=== PATIENT | male | born 1950 | race Caucasian/White ===

== ENCOUNTER 2017-09-12 11:17 | Day surgery (SDC) | payer MEDICARE ==
[~2017-09-12] VITALS: Ht 182.9 cm; Wt 136.1 kg
[~2017-09-12 11:17] MED LIST: AMLO5 PO; ATEN100 PO; CHLO25B PO; CYCL10 PO; FERROUS SULFATE PO; FLUOROURACIL30 GM TOP; HYDCHL25 PO; LOSA50 PO; OMEPRAZOLE MAGN20 MG PO; Percocet 5-3251 EACH PO; Prednisone20 MG PO; TRIA15CR3 TOP; Zestril40 MG PO
[2017-09-13 04:42] LABS: BASOPHILS ABSOLUTE AUTO 0.02 K/mm3 (0.00-0.23); BASOPHILS PERCENT AUTO 0 % (0-2); EOSINOPHILS ABSOLUTE AUTO 0.01 K/mm3 (0.00-0.68); EOSINOPHILS PERCENT AUTO 0 % (0-6); Hematocrit 35.3 % (37.0-53.0); Hemoglobin 12.1 g/dL (13.5-17.5); IMMATURE GRAN ABSOLUTE AUTO 0.04 K/mm3 (0.00-0.10); IMMATURE GRAN PERCENT AUTO 0 % (0-1); LYMPHOCYTES ABSOLUTE AUTO 0.64 K/mm3 (0.84-5.20); LYMPHOCYTES PERCENT AUTO 6 % (21-46); MONOCYTES ABSOLUTE AUTO 0.55 K/mm3 (0.16-1.47); MONOCYTES PERCENT AUTO 5 % (4-13); Mean Corpuscular HGB 31.1 pg (26.0-34.0); Mean Corpuscular HGB Conc 34.3 g/dL (31.5-36.5); Mean Corpuscular Volume 91 fL (80-100); Mean Platelet Volume 8.1 fL (9.1-12.4); NEUTROPHILS ABSOLUTE AUTO 9.22 K/mm3 (1.96-9.15); NEUTROPHILS PERCENT AUTO 88 % (41-73); Platelet Count 261 K/mm3 (150-400); RDW Coefficient Variation 12.3 % (11.7-14.2); RDW Standard Deviation 40.4 fL (35.1-46.3); Red Blood Cell Count 3.89 M/mm3 (4.30-5.90); White Blood Cell Count 10.48 K/mm3 (4.00-11.30)
[2017-09-13 05:03] LABS: Bun/Creatinine Ratio 17.4 (12.0-20.0); Calcium, Blood 8.7 mg/dL (8.5-10.1); Creatinine, Blood 1.44 mg/dL (0.60-1.20); Magnesium, Blood 1.9 mg/dL (1.6-2.4); Potassium, Blood 4.5 mmol/L (3.5-5.5)
[2017-09-13] MEDS ORDERED: ENOX40I SC (10:45)
[2017-09-13] MEDS ORDERED: PROM25 PO (10:46)
[2017-09-13] MEDS ORDERED: Percocet 5-3251 EACH PO (10:47)
== END 2017-09-13 15:02 | disposition home or self-care (01) ==
LOC: ORSCMMR 11:17 → PRE IP 11:17 → SURS 11:17 → EDSTATUS 15:00 → PRE IP 15:00 → SURS 17:52 → ORSCMMR 09-13 15:02
PROVIDERS: Orthopaedic Surgery
PROC: 0SRC0J9 Replacement of Right Knee Joint with Synthetic Substitute, Cemented, Open Approach (ICD-10-PCS; principal; 2017-09-12 15:00)
DX: M17.11 Unilateral primary osteoarthritis, right knee (principal); I10 Essential (primary) hypertension; G47.33 Obstructive sleep apnea (adult) (pediatric); Z87.891 Personal history of nicotine dependence; E66.01 Morbid (severe) obesity due to excess calories; Z68.41 Body mass index [BMI] 40.0-44.9, adult; Z79.899 Other long term (current) drug therapy
CPT/HCPCS: 36415; 73560-RT; 80048; 83735; 85025; 86850; 86900; 86901; 88300; 97110; 97116; 97162; 97530; C1713; C1776; G8978; G8979; J0171; J0330; J0690; J0735; J1100; J1650; J1885; J2250; J2405; J2795; J3010; J3370; J7120; Q0163

== ENCOUNTER 2017-09-27 15:27 | Inpatient (IN) | payer MEDICARE ==
[~2017-09-27] VITALS: Ht 185.4 cm; Wt 135.0 kg
[~2017-09-27 15:27] MED LIST changes: +ENOX40I SC; +PROM25 PO
[2017-09-27] MEDS ORDERED: Prilosec Otc20 MG PO ×2 (16:22)
[2017-09-27 16:58] LABS: Bun/Creatinine Ratio 17.7 (12.0-20.0); Calcium, Blood 9.1 mg/dL (8.5-10.1); Creatinine, Blood 1.58 mg/dL (0.60-1.20); Potassium, Blood 4.1 mmol/L (3.5-5.5)
[2017-09-27 20:20] LABS: BODY FLUID RBC 0.113 (0-0); RBC Count, Synovial Fluid 113000 /mm3 (0-0); WBC Count, Synovial Fluid 4862 /mm3 (0-180)
[2017-09-27 20:28] LABS: Lymphs, Synovial Fluid 8 % (0-15); Monocytes/Macrophages, Synovia 4 % (0-65); Neutrophils, Synovial Fluid 88 % (0-24)
[2017-09-27 20:29] LABS: Appearance, Synovial Fluid Turbid (Clear); Color, Synovial Fluid Red (None-P Yel)
[2017-09-27 20:50] LABS: BODY FLUID RBC 0.564 (0-0); RBC Count, Synovial Fluid 564000 /mm3 (0-0)
[2017-09-27 21:02] LABS: Lymphs, Synovial Fluid 1 % (0-15); Neutrophils, Synovial Fluid 99 % (0-24); WBC Count, Synovial Fluid 179840 /mm3 (0-180)
[2017-09-27 21:07] LABS: Appearance, Synovial Fluid Bloody (Clear); Color, Synovial Fluid Red (None-P Yel)
[2017-09-28 03:51] LABS: BASOPHILS ABSOLUTE AUTO 0.02 K/mm3 (0.00-0.23); BASOPHILS PERCENT AUTO 0 % (0-2); EOSINOPHILS PERCENT AUTO 0 % (0-6); Hematocrit 27.3 % (37.0-53.0); Hemoglobin 9.3 g/dL (13.5-17.5); IMMATURE GRAN ABSOLUTE AUTO 0.08 K/mm3 (0.00-0.10); IMMATURE GRAN PERCENT AUTO 1 % (0-1); LYMPHOCYTES ABSOLUTE AUTO 0.31 K/mm3 (0.84-5.20); LYMPHOCYTES PERCENT AUTO 3 % (21-46); MONOCYTES PERCENT AUTO 4 % (4-13); Mean Corpuscular HGB 31.3 pg (26.0-34.0); Mean Corpuscular HGB Conc 34.1 g/dL (31.5-36.5); Mean Corpuscular Volume 92 fL (80-100); Mean Platelet Volume 8.3 fL (9.1-12.4); NEUTROPHILS ABSOLUTE AUTO 10.29 K/mm3 (1.96-9.15); NEUTROPHILS PERCENT AUTO 93 % (41-73); Platelet Count 348 K/mm3 (150-400); RDW Standard Deviation 43.4 fL (35.1-46.3); Red Blood Cell Count 2.97 M/mm3 (4.30-5.90)
[2017-09-28 04:16] LABS: Bun/Creatinine Ratio 17.2 (12.0-20.0); Calcium, Blood 8.5 mg/dL (8.5-10.1); Creatinine, Blood 1.51 mg/dL (0.60-1.20); Magnesium, Blood 1.7 mg/dL (1.6-2.4); Potassium, Blood 4.3 mmol/L (3.5-5.5)
[2017-09-28] MEDS ORDERED: METO100ER PO ×2 (13:45)
[2017-09-29 05:37] LABS: BASOPHILS ABSOLUTE AUTO 0.05 K/mm3 (0.00-0.23); BASOPHILS PERCENT AUTO 1 % (0-2); EOSINOPHILS ABSOLUTE AUTO 0.38 K/mm3 (0.00-0.68); EOSINOPHILS PERCENT AUTO 5 % (0-6); Hematocrit 29.2 % (37.0-53.0); IMMATURE GRAN ABSOLUTE AUTO 0.05 K/mm3 (0.00-0.10); IMMATURE GRAN PERCENT AUTO 1 % (0-1); LYMPHOCYTES ABSOLUTE AUTO 1.07 K/mm3 (0.84-5.20); LYMPHOCYTES PERCENT AUTO 13 % (21-46); MONOCYTES ABSOLUTE AUTO 0.51 K/mm3 (0.16-1.47); MONOCYTES PERCENT AUTO 6 % (4-13); Mean Corpuscular HGB 31.2 pg (26.0-34.0); Mean Corpuscular HGB Conc 34.2 g/dL (31.5-36.5); Mean Corpuscular Volume 91 fL (80-100); Mean Platelet Volume 8.2 fL (9.1-12.4); NEUTROPHILS ABSOLUTE AUTO 6.33 K/mm3 (1.96-9.15); NEUTROPHILS PERCENT AUTO 75 % (41-73); Platelet Count 389 K/mm3 (150-400); RDW Coefficient Variation 12.8 % (11.7-14.2); RDW Standard Deviation 42.2 fL (35.1-46.3); Red Blood Cell Count 3.21 M/mm3 (4.30-5.90); White Blood Cell Count 8.39 K/mm3 (4.00-11.30)
[2017-09-29 05:58] LABS: Creatinine, Blood 1.37 mg/dL (0.60-1.20); Potassium, Blood 4.1 mmol/L (3.5-5.5)
[2017-09-29 11:52] LABS: BODY FLUID RBC 0.397 (0-0); RBC Count, Synovial Fluid 397000 /mm3 (0-0)
[2017-09-29 11:58] LABS: WBC Count, Synovial Fluid 25280 /mm3 (0-180)
[2017-09-29 12:01] LABS: Appearance, Synovial Fluid Bloody (Clear); Color, Synovial Fluid Red (None-P Yel)
[2017-09-29 12:35] LABS: Lymphs, Synovial Fluid 2 % (0-15); Monocytes/Macrophages, Synovia 7 % (0-65); Neutrophils, Synovial Fluid 91 % (0-24)
[2017-10-01 06:21] LABS: Hematocrit 29.1 % (37.0-53.0); Hemoglobin 9.8 g/dL (13.5-17.5); Mean Corpuscular HGB 31.3 pg (26.0-34.0); Mean Corpuscular HGB Conc 33.7 g/dL (31.5-36.5); Mean Corpuscular Volume 93 fL (80-100); Mean Platelet Volume 7.9 fL (9.1-12.4); Platelet Count 404 K/mm3 (150-400); RDW Coefficient Variation 13.1 % (11.7-14.2); RDW Standard Deviation 44.5 fL (35.1-46.3); Red Blood Cell Count 3.13 M/mm3 (4.30-5.90); White Blood Cell Count 7.25 K/mm3 (4.00-11.30)
[2017-10-01 06:40] LABS: Albumin, Blood 2.9 g/dL (3.4-5.0); Albumin/Globulin Ratio 0.7 (0.8-1.8); Bilirubin, Total 0.3 mg/dL (0.1-1.0); Bun/Creatinine Ratio 20.2 (12.0-20.0); Calcium, Blood 8.8 mg/dL (8.5-10.1); Creatinine, Blood 1.29 mg/dL (0.60-1.20); Globulin, Blood 3.9 g/dL (2.2-4.0); Potassium, Blood 4.1 mmol/L (3.5-5.5); Total Protein, Blood 6.8 g/dL (6.4-8.2)
[2017-10-01 16:59] LABS: BODY FLUID RBC 1.012 (0-0); RBC Count, Synovial Fluid 1012000 /mm3 (0-0); WBC Count, Synovial Fluid 3431 /mm3 (0-180)
[2017-10-01 17:39] LABS: Appearance, Synovial Fluid Bloody (Clear); Color, Synovial Fluid Red (None-P Yel)
[2017-10-01 17:46] LABS: Eos, Synovial Fluid 14 % (0-2); Lymphs, Synovial Fluid 11 % (0-15); Neutrophils, Synovial Fluid 75 % (0-24)
[2017-10-02 05:08] LABS: BASOPHILS ABSOLUTE AUTO 0.02 K/mm3 (0.00-0.23); BASOPHILS PERCENT AUTO 0 % (0-2); EOSINOPHILS ABSOLUTE AUTO 0.03 K/mm3 (0.00-0.68); EOSINOPHILS PERCENT AUTO 0 % (0-6); Hemoglobin 9.9 g/dL (13.5-17.5); IMMATURE GRAN ABSOLUTE AUTO 0.09 K/mm3 (0.00-0.10); IMMATURE GRAN PERCENT AUTO 1 % (0-1); LYMPHOCYTES ABSOLUTE AUTO 0.61 K/mm3 (0.84-5.20); LYMPHOCYTES PERCENT AUTO 7 % (21-46); MONOCYTES ABSOLUTE AUTO 0.47 K/mm3 (0.16-1.47); MONOCYTES PERCENT AUTO 6 % (4-13); Mean Corpuscular HGB 30.1 pg (26.0-34.0); Mean Corpuscular Volume 91 fL (80-100); Mean Platelet Volume 8.1 fL (9.1-12.4); NEUTROPHILS ABSOLUTE AUTO 7.13 K/mm3 (1.96-9.15); NEUTROPHILS PERCENT AUTO 85 % (41-73); Platelet Count 414 K/mm3 (150-400); RDW Coefficient Variation 12.7 % (11.7-14.2); RDW Standard Deviation 42.4 fL (35.1-46.3); Red Blood Cell Count 3.29 M/mm3 (4.30-5.90); White Blood Cell Count 8.35 K/mm3 (4.00-11.30)
[2017-10-02 05:32] LABS: Anion Gap 7 mmol/L (6-16); Blood Urea Nitrogen 22 mg/dL (8-24); Bun/Creatinine Ratio 19.5 (12.0-20.0); CO2, Blood 27 mmol/L (21-32); Calcium, Blood 8.9 mg/dL (8.5-10.1); Chloride, Blood 96 mmol/L (98-108); Creatinine, Blood 1.13 mg/dL (0.60-1.20); Glomerular Filtration Rate >60 (60-); Glucose, Blood 126 mg/dL (70-99); Magnesium, Blood 2.3 mg/dL (1.6-2.4); Potassium, Blood 4.1 mmol/L (3.5-5.5); Sodium, Blood 130 mmol/L (136-145)
[2017-10-02] MEDS ORDERED: LO-DOSE ASPIRIN81 MG ×2 (14:10)
[2017-10-02] MEDS ORDERED: THERA M PLUS T1 EACH PO ×2 (14:11)
[2017-10-02] MEDS ORDERED: CLON.1 PO ×2 (14:11)
[2017-10-02] MEDS ORDERED: Ecotrin325 MG PO ×2 (14:43)
[2017-10-06] MEDS ORDERED: Rocephin 1g1 G/50 ML IV (18:19)
== END 2017-10-02 15:15 | disposition home or self-care (01) | DRG 467 ==
LOC: ORSCMMR 15:27 → SURS 19:59 → ORSCMMR 20:14 → SURS 20:14
PROVIDERS: Internal Medicine; Orthopaedic Surgery
PROC: 0SBC0ZZ Excision of Right Knee Joint, Open Approach (ICD-10-PCS; 2017-09-27)
PROC: 0S9C30Z Drainage of Right Knee Joint with Drainage Device, Percutaneous Approach (ICD-10-PCS; 2017-09-27)
PROC: 02HV33Z Insertion of Infusion Device into Superior Vena Cava, Percutaneous Approach (ICD-10-PCS; 2017-09-27)
PROC: 0SPV0JZ Removal of Synthetic Substitute from Right Knee Joint, Tibial Surface, Open Approach (ICD-10-PCS; principal; 2017-09-27 17:00)
PROC: 0SRV0JZ Replacement of Right Knee Joint, Tibial Surface with Synthetic Substitute, Open Approach (ICD-10-PCS; 2017-09-27 17:00)
DX: T84.53XA Infection and inflammatory reaction due to internal right knee prosthesis, initial encounter (principal); M00.861 Arthritis due to other bacteria, right knee; B96.20 Unspecified Escherichia coli [E. coli] as the cause of diseases classified elsewhere; I10 Essential (primary) hypertension; K21.9 Gastro-esophageal reflux disease without esophagitis; G47.30 Sleep apnea, unspecified; J44.9 Chronic obstructive pulmonary disease, unspecified; F10.21 Alcohol dependence, in remission; Z68.39 Body mass index [BMI] 39.0-39.9, adult
CPT/HCPCS: 36415; 73560-RT; 80048; 80053; 82947; 83735; 85025; 85027; 85651; 86140; 86850; 86900; 86901; 87070; 87071; 87075; 87077; 87186; 87205; 89051; 93971; 97110; 97116; 97161; 97165; C1713; C1776; G8978; G8979; G8987; G8988; G8989; J0360; J0690; J0696; J1100; J1170; J1885; J1956; J2250; J2370; J2405; J2710; J3010; J3370; J7030; J7050; J7120; Q0163

== ENCOUNTER 2017-10-03 00:24 | Day surgery (SDC) | payer MEDICARE ==
[~2017-10-03 00:24] MED LIST changes: +CLON.1 PO; +Ecotrin325 MG PO; +LO-DOSE ASPIRIN81 MG; +METO100ER PO; +Prilosec Otc20 MG PO; +THERA M PLUS T1 EACH PO
[2017-10-04] MEDS ORDERED: DOCU100 PO (14:06)
== END 2017-10-03 14:35 | disposition home or self-care (01) ==
LOC: ATC 00:24
DX: T84.53XA Infection and inflammatory reaction due to internal right knee prosthesis, initial encounter (principal); I10 Essential (primary) hypertension; K21.9 Gastro-esophageal reflux disease without esophagitis; G47.30 Sleep apnea, unspecified; J44.9 Chronic obstructive pulmonary disease, unspecified
CPT/HCPCS: 96374; 99211; J0696

== ENCOUNTER 2017-10-04 00:25 | Day surgery (SDC) | payer MEDICARE ==
[2017-10-04] MEDS ORDERED: DOCU100 PO (14:06)
[2017-10-06] MEDS ORDERED: Rocephin 1g1 G/50 ML IV (18:19)
== END 2017-10-04 14:40 | disposition home or self-care (01) ==
LOC: ATC 00:25
DX: T84.53XA Infection and inflammatory reaction due to internal right knee prosthesis, initial encounter (principal); I10 Essential (primary) hypertension; K21.9 Gastro-esophageal reflux disease without esophagitis; G47.30 Sleep apnea, unspecified; J44.9 Chronic obstructive pulmonary disease, unspecified
CPT/HCPCS: 96374; 99211; J0696

== ENCOUNTER 2017-10-07 00:25 | Day surgery (SDC) | payer MEDICARE ==
[~2017-10-07 00:25] MED LIST changes: +DOCU100 PO; +Rocephin 1g1 G/50 ML IV
== END 2017-10-07 14:00 | disposition home or self-care (01) ==
LOC: ATC 00:25
DX: T84.53XA Infection and inflammatory reaction due to internal right knee prosthesis, initial encounter (principal); I10 Essential (primary) hypertension; G47.30 Sleep apnea, unspecified; J44.9 Chronic obstructive pulmonary disease, unspecified; K21.9 Gastro-esophageal reflux disease without esophagitis
CPT/HCPCS: 96374; 99211; J0696

== ENCOUNTER 2017-10-11 00:28 | Day surgery (SDC) | payer MEDICARE | END 2017-10-11 15:00 | disposition home or self-care (01) | LOC: ATC 00:28 | DX: T84.53XA Infection and inflammatory reaction due to internal right knee prosthesis, initial encounter (principal); I10 Essential (primary) hypertension | CPT/HCPCS: 96374; 99211; J0696 ==

== ENCOUNTER 2017-10-12 00:18 | Day surgery (SDC) | payer MEDICARE | END 2017-10-12 14:25 | disposition home or self-care (01) | LOC: ATC 00:18 | DX: T84.53XA Infection and inflammatory reaction due to internal right knee prosthesis, initial encounter (principal); I10 Essential (primary) hypertension; K21.9 Gastro-esophageal reflux disease without esophagitis; G47.30 Sleep apnea, unspecified; J44.9 Chronic obstructive pulmonary disease, unspecified | CPT/HCPCS: 96374; 99211; J0696 ==

== ENCOUNTER 2017-10-16 00:48 | Day surgery (SDC) | payer MEDICARE | END 2017-10-16 14:12 | disposition home or self-care (01) | LOC: ATC 00:48 | DX: T84.53XA Infection and inflammatory reaction due to internal right knee prosthesis, initial encounter (principal); I10 Essential (primary) hypertension; G47.30 Sleep apnea, unspecified; K21.9 Gastro-esophageal reflux disease without esophagitis; J44.9 Chronic obstructive pulmonary disease, unspecified | CPT/HCPCS: 96374; 99211 ==

== ENCOUNTER 2017-10-17 00:46 | Day surgery (SDC) | payer MEDICARE | END 2017-10-17 14:26 | disposition home or self-care (01) | LOC: ATC 00:46 | DX: T84.53XA Infection and inflammatory reaction due to internal right knee prosthesis, initial encounter (principal); I10 Essential (primary) hypertension; K21.9 Gastro-esophageal reflux disease without esophagitis; G47.30 Sleep apnea, unspecified | CPT/HCPCS: 96374; J0696 ==

== ENCOUNTER 2017-10-18 00:27 | Day surgery (SDC) | payer MEDICARE | END 2017-10-18 14:12 | disposition home or self-care (01) | LOC: ATC 00:27 | DX: T84.53XA Infection and inflammatory reaction due to internal right knee prosthesis, initial encounter (principal); I10 Essential (primary) hypertension; J44.9 Chronic obstructive pulmonary disease, unspecified; G47.30 Sleep apnea, unspecified | CPT/HCPCS: 96374; J0696 ==

== ENCOUNTER 2017-10-19 02:09 | Day surgery (SDC) | payer MEDICARE | END 2017-10-19 13:52 | disposition home or self-care (01) | LOC: ATC 02:09 | DX: T84.53XA Infection and inflammatory reaction due to internal right knee prosthesis, initial encounter (principal); I10 Essential (primary) hypertension; K21.9 Gastro-esophageal reflux disease without esophagitis; G47.30 Sleep apnea, unspecified | CPT/HCPCS: 96374; J0696 ==

== ENCOUNTER 2017-10-21 00:30 | Day surgery (SDC) | payer MEDICARE | END 2017-10-21 13:36 | disposition home or self-care (01) | LOC: ATC 00:30 | DX: T84.53XA Infection and inflammatory reaction due to internal right knee prosthesis, initial encounter (principal); I10 Essential (primary) hypertension; K21.9 Gastro-esophageal reflux disease without esophagitis; J44.9 Chronic obstructive pulmonary disease, unspecified | CPT/HCPCS: 96365; J0696 ==

== ENCOUNTER 2017-10-22 00:14 | Day surgery (SDC) | payer MEDICARE | END 2017-10-22 13:43 | disposition home or self-care (01) | LOC: ATC 00:14 | DX: T84.53XA Infection and inflammatory reaction due to internal right knee prosthesis, initial encounter (principal); I10 Essential (primary) hypertension; K21.9 Gastro-esophageal reflux disease without esophagitis; G47.30 Sleep apnea, unspecified; J44.9 Chronic obstructive pulmonary disease, unspecified | CPT/HCPCS: 96374; 99211; J0696 ==

== ENCOUNTER 2017-10-23 00:59 | Day surgery (SDC) | payer MEDICARE | END 2017-10-23 15:29 | disposition home or self-care (01) | LOC: ATC 00:59 | DX: T84.53XA Infection and inflammatory reaction due to internal right knee prosthesis, initial encounter (principal); I10 Essential (primary) hypertension; K21.9 Gastro-esophageal reflux disease without esophagitis; G47.30 Sleep apnea, unspecified | CPT/HCPCS: 96374; J0696 ==

== ENCOUNTER 2017-10-24 00:04 | Day surgery (SDC) | payer MEDICARE | END 2017-10-24 15:14 | disposition home or self-care (01) | LOC: ATC 00:04 | DX: T84.53XA Infection and inflammatory reaction due to internal right knee prosthesis, initial encounter (principal); I10 Essential (primary) hypertension; K21.9 Gastro-esophageal reflux disease without esophagitis; J44.9 Chronic obstructive pulmonary disease, unspecified; G47.30 Sleep apnea, unspecified; Z85.038 Personal history of other malignant neoplasm of large intestine | CPT/HCPCS: 96374; J0696 ==

== ENCOUNTER 2017-10-25 00:17 | Day surgery (SDC) | payer MEDICARE | END 2017-10-25 15:41 | disposition home or self-care (01) | LOC: ATC 00:17 | DX: T84.53XA Infection and inflammatory reaction due to internal right knee prosthesis, initial encounter (principal); I10 Essential (primary) hypertension; K21.9 Gastro-esophageal reflux disease without esophagitis | CPT/HCPCS: 96374; J0696 ==

== ENCOUNTER 2017-10-26 12:31 | Day surgery (SDC) | payer MEDICARE ==
[~2017-10-26] VITALS: Ht 185.4 cm; Wt 131.5 kg
== END 2017-10-26 14:35 | disposition home or self-care (01) ==
LOC: ORSCMMR 12:31 → ATC 14:00 → ORSCMMR 14:35
PROVIDERS: Orthopaedic Surgery
PROC: 2W1QX6Z Compression of Right Lower Leg using Pressure Dressing (ICD-10-PCS; principal; 2017-10-26 14:30)
DX: T84.53XA Infection and inflammatory reaction due to internal right knee prosthesis, initial encounter (principal); K21.9 Gastro-esophageal reflux disease without esophagitis; I10 Essential (primary) hypertension; J44.9 Chronic obstructive pulmonary disease, unspecified; Z87.891 Personal history of nicotine dependence; Z79.82 Long term (current) use of aspirin; Z79.899 Other long term (current) drug therapy
CPT/HCPCS: J0690

== ENCOUNTER 2017-10-29 00:48 | Day surgery (SDC) | payer MEDICARE | END 2017-10-29 13:50 | disposition home or self-care (01) | LOC: ATC 00:48 | DX: T84.53XA Infection and inflammatory reaction due to internal right knee prosthesis, initial encounter (principal); I10 Essential (primary) hypertension; K21.9 Gastro-esophageal reflux disease without esophagitis; G47.30 Sleep apnea, unspecified; J44.9 Chronic obstructive pulmonary disease, unspecified | CPT/HCPCS: 96374; J0696 ==

== ENCOUNTER 2017-10-31 00:39 | Day surgery (SDC) | payer MEDICARE | END 2017-10-31 13:58 | disposition home or self-care (01) | LOC: ATC 00:39 | DX: T84.53XA Infection and inflammatory reaction due to internal right knee prosthesis, initial encounter (principal); I10 Essential (primary) hypertension; G47.30 Sleep apnea, unspecified; J44.9 Chronic obstructive pulmonary disease, unspecified | CPT/HCPCS: 96374; J0696 ==

== ENCOUNTER 2017-11-01 00:39 | Day surgery (SDC) | payer MEDICARE ==
[2017-11-01 14:37] LABS: BASOPHILS ABSOLUTE AUTO 0.05 K/mm3 (0.00-0.23); BASOPHILS PERCENT AUTO 1 % (0-2); EOSINOPHILS ABSOLUTE AUTO 0.27 K/mm3 (0.00-0.68); EOSINOPHILS PERCENT AUTO 6 % (0-6); Hematocrit 31.7 % (37.0-53.0); Hemoglobin 10.8 g/dL (13.5-17.5); IMMATURE GRAN ABSOLUTE AUTO 0.01 K/mm3 (0.00-0.10); IMMATURE GRAN PERCENT AUTO 0 % (0-1); LYMPHOCYTES ABSOLUTE AUTO 0.74 K/mm3 (0.84-5.20); LYMPHOCYTES PERCENT AUTO 17 % (21-46); MONOCYTES ABSOLUTE AUTO 0.64 K/mm3 (0.16-1.47); MONOCYTES PERCENT AUTO 15 % (4-13); Mean Corpuscular HGB 29.2 pg (26.0-34.0); Mean Corpuscular HGB Conc 34.1 g/dL (31.5-36.5); Mean Corpuscular Volume 86 fL (80-100); Mean Platelet Volume 8.2 fL (9.1-12.4); NEUTROPHILS ABSOLUTE AUTO 2.55 K/mm3 (1.96-9.15); NEUTROPHILS PERCENT AUTO 60 % (41-73); Platelet Count 283 K/mm3 (150-400); RDW Coefficient Variation 13.1 % (11.7-14.2); RDW Standard Deviation 40.8 fL (35.1-46.3); White Blood Cell Count 4.26 K/mm3 (4.00-11.30)
== END 2017-11-01 14:25 | disposition home or self-care (01) ==
LOC: ATC 00:39
PROVIDERS: Orthopaedic Surgery
DX: T84.53XA Infection and inflammatory reaction due to internal right knee prosthesis, initial encounter (principal); I10 Essential (primary) hypertension; K21.9 Gastro-esophageal reflux disease without esophagitis; G47.30 Sleep apnea, unspecified; J44.9 Chronic obstructive pulmonary disease, unspecified
CPT/HCPCS: 85025; 85651; 86140; 96374; J0696

== ENCOUNTER 2017-11-02 00:17 | Day surgery (SDC) | payer MEDICARE | END 2017-11-02 10:30 | disposition home or self-care (01) | LOC: ATC 00:17 | DX: T84.53XA Infection and inflammatory reaction due to internal right knee prosthesis, initial encounter (principal); I10 Essential (primary) hypertension; K21.9 Gastro-esophageal reflux disease without esophagitis; G47.30 Sleep apnea, unspecified; J44.9 Chronic obstructive pulmonary disease, unspecified | CPT/HCPCS: 96374; J0696 ==

== ENCOUNTER 2017-11-03 00:31 | Day surgery (SDC) | payer MEDICARE | END 2017-11-03 13:58 | disposition home or self-care (01) | LOC: ATC 00:31 | DX: T84.53XA Infection and inflammatory reaction due to internal right knee prosthesis, initial encounter (principal) | CPT/HCPCS: 96374; J0696 ==

== ENCOUNTER 2017-11-04 00:04 | Day surgery (SDC) | payer MEDICARE | END 2017-11-04 13:38 | disposition home or self-care (01) | LOC: ATC 00:04 | DX: T84.53XA Infection and inflammatory reaction due to internal right knee prosthesis, initial encounter (principal); I10 Essential (primary) hypertension; K21.9 Gastro-esophageal reflux disease without esophagitis; G47.30 Sleep apnea, unspecified | CPT/HCPCS: 96374; J0696 ==

== ENCOUNTER 2017-11-05 00:07 | Day surgery (SDC) | payer MEDICARE | END 2017-11-05 13:56 | disposition home or self-care (01) | LOC: ATC 00:07 | DX: T84.53XA Infection and inflammatory reaction due to internal right knee prosthesis, initial encounter (principal); I10 Essential (primary) hypertension; K21.9 Gastro-esophageal reflux disease without esophagitis; G47.30 Sleep apnea, unspecified; J44.9 Chronic obstructive pulmonary disease, unspecified | CPT/HCPCS: 96374; J0696 ==

== ENCOUNTER 2017-11-06 00:54 | Day surgery (SDC) | payer MEDICARE | END 2017-11-06 14:22 | disposition home or self-care (01) | LOC: ATC 00:54 | DX: T84.53XA Infection and inflammatory reaction due to internal right knee prosthesis, initial encounter (principal); I10 Essential (primary) hypertension; K21.9 Gastro-esophageal reflux disease without esophagitis; J44.9 Chronic obstructive pulmonary disease, unspecified | CPT/HCPCS: 96374; J0696 ==

== ENCOUNTER 2017-11-07 | Day surgery (SDC) | END 2017-11-07 13:56 | disposition home or self-care (01) ==

== ENCOUNTER 2017-11-09 00:12 | Day surgery (SDC) | payer MEDICARE ==
[2017-11-09 14:18] LABS: BASOPHILS ABSOLUTE AUTO 0.04 K/mm3 (0.00-0.23); BASOPHILS PERCENT AUTO 1 % (0-2); EOSINOPHILS ABSOLUTE AUTO 0.03 K/mm3 (0.00-0.68); EOSINOPHILS PERCENT AUTO 1 % (0-6); Hematocrit 31.2 % (37.0-53.0); Hemoglobin 10.4 g/dL (13.5-17.5); IMMATURE GRAN ABSOLUTE AUTO 0.01 K/mm3 (0.00-0.10); IMMATURE GRAN PERCENT AUTO 0 % (0-1); LYMPHOCYTES ABSOLUTE AUTO 0.71 K/mm3 (0.84-5.20); LYMPHOCYTES PERCENT AUTO 19 % (21-46); MONOCYTES ABSOLUTE AUTO 0.62 K/mm3 (0.16-1.47); MONOCYTES PERCENT AUTO 16 % (4-13); Mean Corpuscular HGB 28.3 pg (26.0-34.0); Mean Corpuscular HGB Conc 33.3 g/dL (31.5-36.5); Mean Corpuscular Volume 85 fL (80-100); Mean Platelet Volume 8.3 fL (9.1-12.4); NEUTROPHILS ABSOLUTE AUTO 2.39 K/mm3 (1.96-9.15); NEUTROPHILS PERCENT AUTO 63 % (41-73); Platelet Count 348 K/mm3 (150-400); RDW Coefficient Variation 13.3 % (11.7-14.2); RDW Standard Deviation 41.3 fL (35.1-46.3); Red Blood Cell Count 3.67 M/mm3 (4.30-5.90)
== END 2017-11-09 14:02 | disposition home or self-care (01) ==
LOC: ATC 00:12
PROVIDERS: Orthopaedic Surgery
DX: T84.53XA Infection and inflammatory reaction due to internal right knee prosthesis, initial encounter (principal); I10 Essential (primary) hypertension; J44.9 Chronic obstructive pulmonary disease, unspecified; G47.30 Sleep apnea, unspecified
CPT/HCPCS: 85025; 85651; 86140; 96374; J0696

== ENCOUNTER 2017-11-10 13:52 | Day surgery (SDC) | payer MEDICARE | END 2017-11-10 14:15 | disposition home or self-care (01) | LOC: ATC 13:52 | DX: T84.53XA Infection and inflammatory reaction due to internal right knee prosthesis, initial encounter (principal); I10 Essential (primary) hypertension; K21.9 Gastro-esophageal reflux disease without esophagitis; J44.9 Chronic obstructive pulmonary disease, unspecified; G47.30 Sleep apnea, unspecified | CPT/HCPCS: 96374; J0696 ==

== ENCOUNTER 2017-11-13 00:30 | Day surgery (SDC) | payer MEDICARE ==
[2017-11-13 13:11] LABS: Albumin, Blood 3.9 g/dL (3.4-5.0); Albumin/Globulin Ratio 0.9 (0.8-1.8); Bilirubin, Total 0.2 mg/dL (0.1-1.0); Bun/Creatinine Ratio 13.7 (12.0-20.0); Creatinine, Blood 1.31 mg/dL (0.60-1.20); Globulin, Blood 4.2 g/dL (2.2-4.0); Potassium, Blood 4.3 mmol/L (3.5-5.5); Total Protein, Blood 8.1 g/dL (6.4-8.2)
== END 2017-11-13 12:32 | disposition home or self-care (01) ==
LOC: ATC 00:30
PROVIDERS: Internal Medicine Infectious Disease
DX: T84.53XA Infection and inflammatory reaction due to internal right knee prosthesis, initial encounter (principal); I10 Essential (primary) hypertension; K21.9 Gastro-esophageal reflux disease without esophagitis; G47.30 Sleep apnea, unspecified; J44.9 Chronic obstructive pulmonary disease, unspecified
CPT/HCPCS: 80053; 96374; J0696

== ENCOUNTER 2017-11-14 00:23 | Day surgery (SDC) | payer MEDICARE | END 2017-11-14 14:17 | disposition home or self-care (01) | LOC: ATC 00:23 | DX: T84.53XA Infection and inflammatory reaction due to internal right knee prosthesis, initial encounter (principal); I10 Essential (primary) hypertension; K21.9 Gastro-esophageal reflux disease without esophagitis; J44.9 Chronic obstructive pulmonary disease, unspecified | CPT/HCPCS: 96374; J0696 ==

== ENCOUNTER 2017-11-15 00:18 | Day surgery (SDC) | payer MEDICARE | END 2017-11-15 14:20 | disposition home or self-care (01) | LOC: ATC 00:18 | DX: T84.53XA Infection and inflammatory reaction due to internal right knee prosthesis, initial encounter (principal); I10 Essential (primary) hypertension; G47.33 Obstructive sleep apnea (adult) (pediatric); J44.9 Chronic obstructive pulmonary disease, unspecified | CPT/HCPCS: 96374; 99211; J0696 ==

== ENCOUNTER 2017-11-16 00:14 | Day surgery (SDC) | payer MEDICARE | END 2017-11-16 14:15 | disposition home or self-care (01) | LOC: ATC 00:14 | DX: T84.53XA Infection and inflammatory reaction due to internal right knee prosthesis, initial encounter (principal); I10 Essential (primary) hypertension; K21.9 Gastro-esophageal reflux disease without esophagitis; G47.30 Sleep apnea, unspecified; J44.9 Chronic obstructive pulmonary disease, unspecified | CPT/HCPCS: 96374; J0696 ==

== ENCOUNTER 2017-11-17 13:53 | Day surgery (SDC) | payer MEDICARE | END 2017-11-17 14:21 | disposition home or self-care (01) | LOC: ATC 13:53 | DX: T84.53XA Infection and inflammatory reaction due to internal right knee prosthesis, initial encounter (principal); I10 Essential (primary) hypertension; K21.9 Gastro-esophageal reflux disease without esophagitis; G47.30 Sleep apnea, unspecified; J44.9 Chronic obstructive pulmonary disease, unspecified | CPT/HCPCS: 96374; 99212; J0696 ==

== ENCOUNTER 2017-11-18 13:53 | Day surgery (SDC) | payer MEDICARE | END 2017-11-18 14:12 | disposition home or self-care (01) | LOC: ATC 13:53 | DX: T84.53XA Infection and inflammatory reaction due to internal right knee prosthesis, initial encounter (principal); I10 Essential (primary) hypertension; K21.9 Gastro-esophageal reflux disease without esophagitis; G47.30 Sleep apnea, unspecified; J44.9 Chronic obstructive pulmonary disease, unspecified | CPT/HCPCS: 96365; J0696 ==

== ENCOUNTER 2017-11-19 00:36 | Day surgery (SDC) | payer MEDICARE | END 2017-11-19 14:40 | disposition home or self-care (01) | LOC: ATC 00:36 | DX: T84.53XA Infection and inflammatory reaction due to internal right knee prosthesis, initial encounter (principal); I10 Essential (primary) hypertension; K21.9 Gastro-esophageal reflux disease without esophagitis; J44.9 Chronic obstructive pulmonary disease, unspecified; G47.30 Sleep apnea, unspecified | CPT/HCPCS: 96374; 99211; J0696 ==

== ENCOUNTER 2017-11-20 00:44 | Day surgery (SDC) | payer MEDICARE | END 2017-11-20 13:51 | disposition home or self-care (01) | LOC: ATC 00:44 | DX: T84.53XA Infection and inflammatory reaction due to internal right knee prosthesis, initial encounter (principal); I10 Essential (primary) hypertension; K21.9 Gastro-esophageal reflux disease without esophagitis; G47.30 Sleep apnea, unspecified; J44.9 Chronic obstructive pulmonary disease, unspecified | CPT/HCPCS: 96374; J0696 ==

== ENCOUNTER 2017-11-21 00:51 | Day surgery (SDC) | payer MEDICARE | END 2017-11-21 13:52 | disposition home or self-care (01) | LOC: ATC 00:51 | DX: T84.53XA Infection and inflammatory reaction due to internal right knee prosthesis, initial encounter (principal); I10 Essential (primary) hypertension; K21.9 Gastro-esophageal reflux disease without esophagitis; G47.30 Sleep apnea, unspecified | CPT/HCPCS: 96374; 99211; J0696 ==

== ENCOUNTER 2017-11-22 01:01 | Day surgery (SDC) | payer MEDICARE | END 2017-11-22 14:22 | disposition home or self-care (01) | LOC: ATC 01:01 | DX: T84.53XA Infection and inflammatory reaction due to internal right knee prosthesis, initial encounter (principal); I10 Essential (primary) hypertension; K21.9 Gastro-esophageal reflux disease without esophagitis; G47.30 Sleep apnea, unspecified; J44.9 Chronic obstructive pulmonary disease, unspecified | CPT/HCPCS: 96374; J0696 ==

== ENCOUNTER 2017-11-23 00:12 | Day surgery (SDC) | payer MEDICARE | END 2017-11-23 09:22 | disposition home or self-care (01) | LOC: ATC 00:12 | DX: T84.53XA Infection and inflammatory reaction due to internal right knee prosthesis, initial encounter (principal); I10 Essential (primary) hypertension; K21.9 Gastro-esophageal reflux disease without esophagitis; G47.30 Sleep apnea, unspecified; J44.9 Chronic obstructive pulmonary disease, unspecified | CPT/HCPCS: 96374; J0696 ==

== ENCOUNTER 2017-11-24 13:43 | Day surgery (SDC) | payer MEDICARE | END 2017-11-24 14:02 | disposition home or self-care (01) | LOC: ATC 13:43 | DX: T84.53XA Infection and inflammatory reaction due to internal right knee prosthesis, initial encounter (principal); I10 Essential (primary) hypertension; K21.9 Gastro-esophageal reflux disease without esophagitis; G47.30 Sleep apnea, unspecified; J44.9 Chronic obstructive pulmonary disease, unspecified | CPT/HCPCS: 96374; J0696 ==

== ENCOUNTER 2017-11-25 13:30 | Day surgery (SDC) | payer MEDICARE | END 2017-11-25 14:10 | disposition home or self-care (01) | LOC: ATC 13:30 | DX: T84.53XA Infection and inflammatory reaction due to internal right knee prosthesis, initial encounter (principal); I10 Essential (primary) hypertension; K21.9 Gastro-esophageal reflux disease without esophagitis; G47.30 Sleep apnea, unspecified; J44.9 Chronic obstructive pulmonary disease, unspecified | CPT/HCPCS: 96374; 99211; J0696 ==

== ENCOUNTER 2017-11-26 00:29 | Day surgery (SDC) | payer MEDICARE ==
[2017-11-26 14:43] LABS: BASOPHILS ABSOLUTE AUTO 0.06 K/mm3 (0.00-0.23); BASOPHILS PERCENT AUTO 2 % (0-2); EOSINOPHILS PERCENT AUTO 0 % (0-6); Hematocrit 32.2 % (37.0-53.0); Hemoglobin 10.8 g/dL (13.5-17.5); IMMATURE GRAN ABSOLUTE AUTO 0.02 K/mm3 (0.00-0.10); IMMATURE GRAN PERCENT AUTO 1 % (0-1); LYMPHOCYTES ABSOLUTE AUTO 0.77 K/mm3 (0.84-5.20); LYMPHOCYTES PERCENT AUTO 20 % (21-46); MONOCYTES ABSOLUTE AUTO 0.43 K/mm3 (0.16-1.47); MONOCYTES PERCENT AUTO 11 % (4-13); Mean Corpuscular HGB 27.2 pg (26.0-34.0); Mean Corpuscular HGB Conc 33.5 g/dL (31.5-36.5); Mean Corpuscular Volume 81 fL (80-100); Mean Platelet Volume 8.6 fL (9.1-12.4); NEUTROPHILS ABSOLUTE AUTO 2.55 K/mm3 (1.96-9.15); NEUTROPHILS PERCENT AUTO 67 % (41-73); Platelet Count 299 K/mm3 (150-400); RDW Coefficient Variation 13.6 % (11.7-14.2); RDW Standard Deviation 40.3 fL (35.1-46.3); Red Blood Cell Count 3.97 M/mm3 (4.30-5.90); White Blood Cell Count 3.83 K/mm3 (4.00-11.30)
[2017-11-26 14:57] LABS: Alanine Aminotransfer (ALT/SGP 26 U/L (12-78); Albumin, Blood 3.8 g/dL (3.4-5.0); Alk Phos 101 U/L (50-136); Anion Gap 11 mmol/L (6-16); Aspartate Aminotrans (AST/SGOT 23 U/L (12-37); Bilirubin, Total 0.3 mg/dL (0.1-1.0); Blood Urea Nitrogen 27 mg/dL (8-24); Bun/Creatinine Ratio 21.8 (12.0-20.0); CO2, Blood 24 mmol/L (21-32); Chloride, Blood 92 mmol/L (98-108); Creatinine, Blood 1.24 mg/dL (0.60-1.20); Globulin, Blood 3.7 g/dL (2.2-4.0); Glomerular Filtration Rate >60 (60-); Glucose, Blood 153 mg/dL (70-99); Potassium, Blood 4.3 mmol/L (3.5-5.5); Sodium, Blood 127 mmol/L (136-145); Total Protein, Blood 7.5 g/dL (6.4-8.2)
== END 2017-11-26 14:25 | disposition home or self-care (01) ==
LOC: ATC 00:29
PROVIDERS: Internal Medicine Hematology & Oncology
DX: T84.53XA Infection and inflammatory reaction due to internal right knee prosthesis, initial encounter (principal); I10 Essential (primary) hypertension; K21.9 Gastro-esophageal reflux disease without esophagitis; G47.30 Sleep apnea, unspecified; J44.9 Chronic obstructive pulmonary disease, unspecified
CPT/HCPCS: 80053; 82378; 85025; 96365; 99211; J0696

== ENCOUNTER 2017-11-28 00:26 | Day surgery (SDC) | payer MEDICARE | END 2017-11-28 22:47 | LOC: ATC 00:26 | DX: T84.53XA Infection and inflammatory reaction due to internal right knee prosthesis, initial encounter (principal); I10 Essential (primary) hypertension; K21.9 Gastro-esophageal reflux disease without esophagitis; G47.30 Sleep apnea, unspecified; J44.9 Chronic obstructive pulmonary disease, unspecified ==

== ENCOUNTER 2017-11-30 00:30 | Day surgery (SDC) | payer MEDICARE | END 2017-11-30 22:48 | disposition home or self-care (01) | LOC: ATC 00:30 | DX: T84.53XA Infection and inflammatory reaction due to internal right knee prosthesis, initial encounter (principal); K21.9 Gastro-esophageal reflux disease without esophagitis; I10 Essential (primary) hypertension; G47.30 Sleep apnea, unspecified; J44.9 Chronic obstructive pulmonary disease, unspecified ==

== ENCOUNTER → 2019-09-12 | Outpatient (CLI) | payer MEDICARE ==
[2019-09-12 13:17] LABS: BASOPHILS ABSOLUTE AUTO 0.06 K/mm3 (0.00-0.23); BASOPHILS PERCENT AUTO 0 % (0-2); EOSINOPHILS ABSOLUTE AUTO 0.16 K/mm3 (0.00-0.68); EOSINOPHILS PERCENT AUTO 1 % (0-6); Hematocrit 40.2 % (37.0-53.0); Hemoglobin 14.7 g/dL (13.5-17.5); IMMATURE GRAN ABSOLUTE AUTO 0.11 K/mm3 (0.00-0.10); IMMATURE GRAN PERCENT AUTO 1 % (0-1); LYMPHOCYTES PERCENT AUTO 4 % (21-46); MONOCYTES PERCENT AUTO 5 % (4-13); Mean Corpuscular HGB 32.5 pg (26.0-34.0); Mean Corpuscular HGB Conc 36.6 g/dL (31.5-36.5); Mean Corpuscular Volume 89 fL (80-100); Mean Platelet Volume 7.9 fL (9.1-12.4); NEUTROPHILS ABSOLUTE AUTO 14.67 K/mm3 (1.96-9.15); NEUTROPHILS PERCENT AUTO 88 % (41-73); Platelet Count 266 K/mm3 (150-400); RDW Coefficient Variation 12.1 % (11.7-14.2); RDW Standard Deviation 39.1 fL (35.1-46.3); Red Blood Cell Count 4.52 M/mm3 (4.30-5.90)
== END | disposition home or self-care (01) ==
LOC: LAB SHORT 13:12 → LAB EV 13:12
PROVIDERS: Physician Assistant Surgical
DX: R50.9 Fever, unspecified (principal)
CPT/HCPCS: 85025

== ENCOUNTER 2020-01-08 09:47 | Emergency (ER) | payer MEDICARE ==
[~2020-01-08] VITALS: Ht 188 cm; Wt 127.0 kg
== END 2020-01-08 11:07 | disposition home or self-care (01) ==
LOC: ER 09:47
DX: I83.891 Varicose veins of right lower extremity with other complications (principal); I10 Essential (primary) hypertension; I25.10 Atherosclerotic heart disease of native coronary artery without angina pectoris; Z88.5 Allergy status to narcotic agent; Z88.2 Allergy status to sulfonamides; Z91.018 Allergy to other foods; Z79.899 Other long term (current) drug therapy; D64.9 Anemia, unspecified; Z87.891 Personal history of nicotine dependence
CPT/HCPCS: 99282

== ENCOUNTER 2020-03-17 15:58 | Observation (INO) | payer MEDICARE ==
[~2020-03-17] VITALS: Ht 190.5 cm; Wt 135.5 kg
[2020-03-17 16:44] LABS: BASOPHILS ABSOLUTE AUTO 0.02 K/mm3 (0.00-0.23); BASOPHILS PERCENT AUTO 0 % (0-2); EOSINOPHILS ABSOLUTE AUTO 0.01 K/mm3 (0.00-0.68); EOSINOPHILS PERCENT AUTO 0 % (0-6); Hematocrit 38.9 % (37.0-53.0); Hemoglobin 13.4 g/dL (13.5-17.5); IMMATURE GRAN ABSOLUTE AUTO 0.03 K/mm3 (0.00-0.10); IMMATURE GRAN PERCENT AUTO 0 % (0-1); LYMPHOCYTES ABSOLUTE AUTO 0.56 K/mm3 (0.84-5.20); LYMPHOCYTES PERCENT AUTO 7 % (21-46); MONOCYTES ABSOLUTE AUTO 0.44 K/mm3 (0.16-1.47); MONOCYTES PERCENT AUTO 6 % (4-13); Mean Corpuscular HGB 31.8 pg (26.0-34.0); Mean Corpuscular HGB Conc 34.4 g/dL (31.5-36.5); Mean Corpuscular Volume 92 fL (80-100); Mean Platelet Volume 8.4 fL (9.1-12.4); NEUTROPHILS PERCENT AUTO 87 % (41-73); Platelet Count 170 K/mm3 (150-400); RDW Coefficient Variation 13.2 % (11.7-14.2); Red Blood Cell Count 4.21 M/mm3 (4.30-5.90); White Blood Cell Count 8.06 K/mm3 (4.00-11.30)
[2020-03-17 17:07] LABS: Alanine Aminotransfer (ALT/SGP 33 U/L (12-78); Albumin, Blood 3.5 g/dL (3.4-5.0); Alk Phos 96 U/L (50-136); Anion Gap 9 mmol/L (6-16); Aspartate Aminotrans (AST/SGOT 32 U/L (12-37); Bilirubin, Total 0.4 mg/dL (0.1-1.0); Blood Urea Nitrogen 23 mg/dL (8-24); Bun/Creatinine Ratio 16.2 (12.0-20.0); CO2, Blood 21 mmol/L (21-32); Calcium, Blood 8.7 mg/dL (8.5-10.1); Chloride, Blood 95 mmol/L (98-108); Creatinine, Blood 1.42 mg/dL (0.60-1.20); Ethanol (Alcohol), Blood, Med <3 mg/dL; Globulin, Blood 3.6 g/dL (2.2-4.0); Glomerular Filtration Rate 53 (60-); Glucose, Blood 123 mg/dL (70-99); Magnesium, Blood 1.5 mg/dL (1.6-2.4); Potassium, Blood 3.7 mmol/L (3.5-5.5); Sodium, Blood 125 mmol/L (136-145); Total Protein, Blood 7.1 g/dL (6.4-8.2); Troponin I 0.149 ng/mL (0.000-0.040)
[2020-03-17 19:24] LABS: Source, Urine Voided
[2020-03-17 19:38] LABS: Bilirubin, Urine Neg (Neg); Blood, Urine 2+ (Neg); Color, Urine Yellow (P-Yellow); Glucose Qualitative, Urine Neg (Neg); Ketones, Urine Neg (Neg); Leukocyte Esterase, Urine Neg (Neg); Nitrite, Urine Neg (Neg); Protein, Urine 3+ (Neg); Specific Gravity, Urine 1.015 (1.003-1.022); Urobilinogen, Urine NORM (Normal)
[2020-03-17 19:56] LABS: Appearance, Urine Hazy (Clear)
[2020-03-17 19:57] LABS: Bacteria Few /hpf; Red Blood Cells, Urine 0-2 /hpf (0-2); Squamous Epithelial Cells Few /hpf (Few); White Blood Cells, Urine 0-2 /hpf (0-5)
[2020-03-17 20:01] LABS: U Amphetamine Screen Not Detected; U Barbituate Screen Not Detected; U Benzodiazapine Screen Not Detected; U Buprenorphine Screen Not Detected; U Cannabinoids Screen Not Detected; U Cocaine Screen Not Detected; U Methadone Screen Not Detected; U Methamphetamine Screen Not Detected; U Opiates Screen Not Detected; U Oxycodone Screen Not Detected; U Phencyclidine Screen Not Detected; U Propoxyphene Screen Not Detected
[2020-03-17] MEDS ORDERED: LOSA50 PO (21:04)
[2020-03-17] MEDS ORDERED: HYDCHL25 PO (21:04)
[2020-03-17] MEDS ORDERED: CLON.1 PO (21:06)
--- NOTE | 2020-03-18 01:24 | NUR ---
IV INSERTION IV INSERTED PRIOR TO UNIT ARRIVAL.
[2020-03-18 04:21] LABS: BASOPHILS ABSOLUTE AUTO 0.03 K/mm3 (0.00-0.23); BASOPHILS PERCENT AUTO 1 % (0-2); EOSINOPHILS PERCENT AUTO 2 % (0-6); Hematocrit 37.1 % (37.0-53.0); Hemoglobin 12.7 g/dL (13.5-17.5); IMMATURE GRAN ABSOLUTE AUTO 0.03 K/mm3 (0.00-0.10); IMMATURE GRAN PERCENT AUTO 1 % (0-1); LYMPHOCYTES ABSOLUTE AUTO 0.57 K/mm3 (0.84-5.20); LYMPHOCYTES PERCENT AUTO 9 % (21-46); MONOCYTES ABSOLUTE AUTO 0.49 K/mm3 (0.16-1.47); MONOCYTES PERCENT AUTO 8 % (4-13); Mean Corpuscular HGB 31.8 pg (26.0-34.0); Mean Corpuscular HGB Conc 34.2 g/dL (31.5-36.5); Mean Corpuscular Volume 93 fL (80-100); Mean Platelet Volume 8.5 fL (9.1-12.4); NEUTROPHILS ABSOLUTE AUTO 4.99 K/mm3 (1.96-9.15); NEUTROPHILS PERCENT AUTO 80 % (41-73); Platelet Count 137 K/mm3 (150-400); RDW Coefficient Variation 13.2 % (11.7-14.2); RDW Standard Deviation 45.2 fL (35.1-46.3); White Blood Cell Count 6.21 K/mm3 (4.00-11.30)
[2020-03-18 04:52] LABS: Bun/Creatinine Ratio 16.2 (12.0-20.0); Calcium, Blood 8.3 mg/dL (8.5-10.1); Creatinine, Blood 1.48 mg/dL (0.60-1.20); Potassium, Blood 3.5 mmol/L (3.5-5.5)
[2020-03-18 04:59] LABS: Troponin I 0.643 ng/mL (0.000-0.040)
--- NOTE | 2020-03-18 06:03 | NUR ---
SHIFT SUMMARY PT ARRIVED TO UNIT FROM ED AT BEGINNING OF SHIFT. PT ALERT AND ORIENTED. PT ABLE TO TRANSFER A SBA AND MOVE SELF AROUND IN BED. BP HYPERTENSIVE UPON ARRIVAL. MEDICATIONS GIVEN PER EMAR. HR REMAINED STABLE, NOT TACHY T/O SHIFT. PT REPORTS NO CP OR PRESSURE. PT REPORTS NO PAIN AT THIS TIME. OXYGEN SATURATION MAINTAINED AOVE 92% ON RA. PT HAS CONTINUOUS PULSE-OXIMETRY ORDERED, PT REFUSED. PT DID NOT WANT ASSISTANCE WHEN USING THE BATHROOM TO MAINTAIN HIS "DIGNITY." UNABLE TO ASSESS SACRAL AREA D/T THIS STATEMENT. WILL CONTINUE TO MONITOR UNTIL REPORT GIVEN TO KYAW MURDOCK.
[2020-03-18] MEDS ORDERED: FOLI1 PO (11:39)
[2020-03-18] MEDS ORDERED: OMEP20ER PO (11:40)
[2020-03-18] MEDS ORDERED: Hair, Skin & N1 EACH PO (11:41)
[2020-03-18] MEDS ORDERED: B-1100 M1 PO (11:41)
--- NOTE | 2020-03-18 12:30 | NUR ---
CALLED DR. MONIKA NOLAND. NOTIFIED HIM THAT CLONIDINE 0.1 MG PO TID ON THE DISCHARGE SAID "NOTE THE DECREASED DOSE" ALTHOUGH IT WAS NOT DECREASED. PATIENT ALSO DISCLOSED TO ME THAT HE ACTUALLY ONLY TAKES THE CLONIDINE TWICE A DAY BECAUSE IT SAYS TO TAKE IT Q8H ON THE PRESCRIPTION BOTTLE AND HE'S "NOT GOING TO STAY UP ALL NIGHT". DR. NOLAND STATES TO CHANGE ORDER TO CLONIDINE 0.1 MG PO BID PATIENT HAS BEEN PREVIOUSLY TAKING IT. DR. NOLAND SAID TO NOTIFY PATIENT THAT HE STOPPED THE DIURETIC BECAUSE PATIENT HAD LOW SODIUM. ORDERED FOR PATIENT TO LIMIT ORAL FREE FLUID TO 1.5L PER DAY. WILL ADD TO DISCHARGE INSTRUCTIONS.
--- NOTE | 2020-03-18 13:35 | NUR ---
DISCHARGE: PATIENT DISCHARGED HOME AT 1335. ESCORTED OUT VIA WHEELCHAIR BY THIS RN. HIS CAME TO DRIVE HIM HOME. HE RECEIVED THE ONE TIME DOSE OF METOPROLOL PER EMAR, HR IN THE 60'S AND BP WNL. MEDICATIONS FAXED TO [facility] IN [place]. DISCUSSED DISCHARGE INSTRUCTIONS, DISCHARGE MEDICATIONS, AND DISCHARGE APPOINTMENTS WITH PATIENT AND HIS , BOTH VERBALIZED UNDERSTANDING. NO FURTHER QUESTIONS AT TIME OF DISCHARGE. IV D/C'D.
== END 2020-03-18 13:46 | disposition home or self-care (01) ==
LOC: ER 15:58 → PCU 21:46
PROVIDERS: Emergency Medicine; Nurse Practitioner Acute Care; ADMIT Internal Medicine
DX: I47.1 Supraventricular tachycardia (principal); R79.89 Other specified abnormal findings of blood chemistry; E87.1 Hypo-osmolality and hyponatremia; N17.9 Acute kidney failure, unspecified; I12.9 Hypertensive chronic kidney disease with stage 1 through stage 4 chronic kidney disease, or unspecified chronic kidney disease; N18.2 Chronic kidney disease, stage 2 (mild); D63.1 Anemia in chronic kidney disease; Z85.038 Personal history of other malignant neoplasm of large intestine; J44.9 Chronic obstructive pulmonary disease, unspecified; F10.10 Alcohol abuse, uncomplicated; G47.33 Obstructive sleep apnea (adult) (pediatric); E66.9 Obesity, unspecified; Z68.36 Body mass index [BMI] 36.0-36.9, adult; Z87.891 Personal history of nicotine dependence; Z88.2 Allergy status to sulfonamides; Z88.5 Allergy status to narcotic agent; Z91.018 Allergy to other foods; Z79.891 Long term (current) use of opiate analgesic; Z79.2 Long term (current) use of antibiotics; Z23 Encounter for immunization; Y90.0 Blood alcohol level of less than 20 mg/100 ml
CPT/HCPCS: 36415; 71045; 80048; 80053; 81001; 83735; 83880; 84443; 84484; 85025; 93005; 93010; 93306; 94760; 96361; 96365; 96372; 99285-25; A9270-GY; G0008; G0378; G0480; J1650; J2405; J3475; J7030; Q2038

== ENCOUNTER 2020-04-18 02:33 | Inpatient (IN) | payer MEDICARE ==
[~2020-04-18] VITALS: Ht 185.4 cm; Wt 131.5 kg
[~2020-04-18 02:33] MED LIST changes: +B-1100 M1 PO; +FOLI1 PO; +Hair, Skin & N1 EACH PO; +OMEP20ER PO
[2020-04-18 04:20] LABS: BASOPHILS ABSOLUTE AUTO 0.04 K/mm3 (0.00-0.23); BASOPHILS PERCENT AUTO 1 % (0-2); EOSINOPHILS ABSOLUTE AUTO 0.43 K/mm3 (0.00-0.68); EOSINOPHILS PERCENT AUTO 6 % (0-6); Hematocrit 39.4 % (37.0-53.0); IMMATURE GRAN ABSOLUTE AUTO 0.04 K/mm3 (0.00-0.10); IMMATURE GRAN PERCENT AUTO 1 % (0-1); LYMPHOCYTES ABSOLUTE AUTO 0.97 K/mm3 (0.84-5.20); LYMPHOCYTES PERCENT AUTO 13 % (21-46); MONOCYTES PERCENT AUTO 7 % (4-13); Mean Corpuscular HGB 31.3 pg (26.0-34.0); Mean Corpuscular Volume 95 fL (80-100); Mean Platelet Volume 8.5 fL (9.1-12.4); NEUTROPHILS PERCENT AUTO 74 % (41-73); Platelet Count 247 K/mm3 (150-400); RDW Coefficient Variation 13.1 % (11.7-14.2); RDW Standard Deviation 46.4 fL (35.1-46.3); Red Blood Cell Count 4.15 M/mm3 (4.30-5.90); White Blood Cell Count 7.48 K/mm3 (4.00-11.30)
[2020-04-18 04:35] LABS: Anion Gap 10 mmol/L (6-16); Blood Urea Nitrogen 20 mg/dL (8-24); Bun/Creatinine Ratio 18.7 (12.0-20.0); CO2, Blood 22 mmol/L (21-32); Calcium, Blood 8.7 mg/dL (8.5-10.1); Chloride, Blood 98 mmol/L (98-108); Creatinine, Blood 1.07 mg/dL (0.60-1.20); Ethanol (Alcohol), Blood, Med 185 mg/dL; Glomerular Filtration Rate >60 (60-); Glucose, Blood 108 mg/dL (70-99); Potassium, Blood 3.9 mmol/L (3.5-5.5); Sodium, Blood 130 mmol/L (136-145)
--- NOTE | 2020-04-18 06:18 | NUR ---
SHORTLY AFTER BEING SLID OVER FROM THE ER GURNEY TO THE BED, LEXIE BECAME UNRESPONSIVE, DEMONSTRATED DECORDICATE POSTURING WITH HEAD TURNING TO THE LEFT AND UPWARD, SNORING RESPIRATIONS, FIXED PUPILS WITH NYSTAGMUS, AND LOST URINE. THIS LASTED FOR 1 MIN 5 SECONDS. HE DID NOT STOP BREATHING DURING THIS TIME. DENIES ANY SIMILAR SYMPTOMS IN THE PAST. AFTER HE REGAINED RESPONSIVENESS, HIS LEFT PUPIL REMAINS FIXED. HIS REPORTS THAT HE DRINKS EVERY NIGHT FROM 9 PM TO 12 PM. SHE STATES THAT HE DRINKS 4 "TALLS" AND ONE PINT OF VODKA. SHE STATED THAT HE DRANK HIS NORMAL AMOUNT OF ALCOHOL LAST NIGHT.
--- NOTE | 2020-04-18 08:19 | NUR ---
HEAD CT OBTAINED. REPORT GIVEN TO DAY SHIFT RN. PT AROUSES EASILY AND RESPONDS APPROPRIATELY AT THIS TIME. REPORTS THAT HE HAS EXPERIENCED SEVERAL DROPS IN BP RECENTLY WITH ER VISITS AND CHANGES TO HIS MEDICATIONS. SHE STATES THAT HIS BP WAS 60s/40s WITH HR IN THE 200s. SHE STATED THAT HIS BLOOD PRESSURE RUNS BETWEEN 150 AND 175 SYSTOLIC AT HOME.
[2020-04-18] MEDS ORDERED: Cefadroxil500 MG PO (08:56)
[2020-04-18] MEDS ORDERED: CARV25 PO (08:58)
--- NOTE | 2020-04-18 09:00 | NUR ---
TRANSFERRED PT TO ICU 15 PCU STATUS - REPORT TO MAHIN RN BY WARREN RN. DR VIRK EFM APPROVED THE TRANSFER BASED ON NEW ONSET SEIZURE. DR DASH AWARE OF CONSULT AND PT TRANSFERRED TO ICU 15. PT A&OX4, ANSWERING QUESTIONS APPROPRIATELY, VSS, TELE SINUS @ 67 BPM. AT BEDSIDE; AWARE OF TRANSFER.
[2020-04-18 09:23] LABS: International Normalized Ratio 1.01; Prothrombin Time Results 10.8 Sec (9.7-11.5)
--- NOTE | 2020-04-18 09:45 | NUR ---
TRANSFER IN PT ARRIVED TO ICU 15 AT 0900 VIA BED. PT IS AWAKE, ALERT, AND ORIENTED. PT IS COMPLAINING OF PAIN TO LEFT HIP AND LEFT LEG AFTER TRANSFER TO ICU BED. PT ON ROOM AIR. VITAL SIGNS STABLE. PT WITH IV IN PLACE, BANANA BAG INFUSING AT 75 ML/HR. PT SPOUSE AT BEDSIDE. SEIZURE PADS IN PLACE. NO SEIZURE LIKE ACTIVITY NOTED. PT WITH SLIGHT TREMOR IN UPPER EXTREMITIES WITH MOVEMENT. WILL CONTINUE TO MONITOR.
--- NOTE | 2020-04-18 16:58 | NUR ---
SHIFT SUMMARY NO ACUTE CHANGES THIS SHIFT. PT REMAINS ALERT AND ORIENTED. PT SLEPT FOR BREIF PERIOD OF TIME THIS AFTERNOON. PT REMAINS PAINFUL TO LEFT HIP AREA. PT MED PER EMAR WITH FENTANYL. VITAL SIGNS STABLE. PT ON ROOM AIR. BANANA BAG INFUSING AT 75 ML/HR. PT USES URINAL TO VOID ONCE THIS SHIFT. PT SPOUSE AT BEDSIDE FOR MOST OF THE AFTERNOON. DR DASH CAME TO SEE PT AND PLANS FOR PT TO GO TO THE OR TOMORROW. PT OK FOR DIET AT THIS TIME, AND NPO AT MIDNIGHT. PT TOLERATED PO INTAKE THIS AFTERNOON WELL. WILL CONTINUE TO MONITOR AND REPORT OFF TO ONCOMING RN.
[2020-04-19 04:12] LABS: BASOPHILS ABSOLUTE AUTO 0.02 K/mm3 (0.00-0.23); BASOPHILS PERCENT AUTO 0 % (0-2); EOSINOPHILS ABSOLUTE AUTO 0.09 K/mm3 (0.00-0.68); EOSINOPHILS PERCENT AUTO 1 % (0-6); Hematocrit 30.6 % (37.0-53.0); Hemoglobin 10.4 g/dL (13.5-17.5); IMMATURE GRAN ABSOLUTE AUTO 0.06 K/mm3 (0.00-0.10); IMMATURE GRAN PERCENT AUTO 1 % (0-1); LYMPHOCYTES PERCENT AUTO 9 % (21-46); MONOCYTES ABSOLUTE AUTO 0.91 K/mm3 (0.16-1.47); MONOCYTES PERCENT AUTO 10 % (4-13); Mean Corpuscular HGB 31.9 pg (26.0-34.0); Mean Corpuscular Volume 94 fL (80-100); Mean Platelet Volume 8.8 fL (9.1-12.4); NEUTROPHILS ABSOLUTE AUTO 7.11 K/mm3 (1.96-9.15); NEUTROPHILS PERCENT AUTO 79 % (41-73); Platelet Count 233 K/mm3 (150-400); RDW Coefficient Variation 13.4 % (11.7-14.2); RDW Standard Deviation 46.2 fL (35.1-46.3); Red Blood Cell Count 3.26 M/mm3 (4.30-5.90); White Blood Cell Count 8.99 K/mm3 (4.00-11.30)
[2020-04-19 04:35] LABS: Albumin, Blood 3.1 g/dL (3.4-5.0); Bilirubin, Total 0.6 mg/dL (0.1-1.0); Bun/Creatinine Ratio 18.2 (12.0-20.0); Calcium, Blood 8.4 mg/dL (8.5-10.1); Creatinine, Blood 1.37 mg/dL (0.60-1.20); Potassium, Blood 4.1 mmol/L (3.5-5.5); Total Protein, Blood 6.1 g/dL (6.4-8.2)
--- NOTE | 2020-04-19 06:07 | NUR ---
SHIFT SUMMARY PT DID NOT SLEEP WELL THROUGH NIGHT. PT C/O OF FREQUENT PAIN - CONSISTENTLY RATING 6 OR 7 FOR LEFT LEG FX. PT ALERT AND ORIENTED. PAIN MEDS GIVEN ABOUT Q2 PER PT NEEDS. TOLERATING ROOM AIR - MAINTAINING SATS >90%. TELE NSR. VOIDING TO URINAL WITH ADEQUATE UOP. NO BOWEL MOVEMENT. SALINE LOCKED. PT NPO SINCE MIDNIGHT FOR ANTICIPATED SURGERY. CIWAS DONE D/T ALCHOHOLISM - CIWAS REMAINED <2. VITALS STABLE CALL LIGHT WITHIN REACH, BED IN LOWEST POSITION. WILL CONTINUE TO MONITOR.
--- NOTE | 2020-04-19 07:15 | NUR ---
Assumed care of pt at 0700. Bedside report received from Tere MURDOCK. Pt A&O x 4. Answers questions. Follows commands. Verbalizes needs. Plan for pt to have surgery today. Pt NPO. Room air. SR per monitor. BP stable.
--- NOTE | 2020-04-19 08:45 | NUR ---
Dr Burks in to see pt. Provider verifies that pt will be having surgery today. Inquired about increasing pt's pain meds. Provider stated to have hospitalist address this.
--- NOTE | 2020-04-19 11:08 | NUR ---
Pt tremulous. States he is normally tremulous but right now the tremors are worse than usual. Educated on CIWA. Pt states most recent alcoholic beverage was 11 pm on Sunday night. Educated about timeline for alcohol withdrawal. Pt states he does not go through withdrawals and refuses to take librium. States he is tremulous because he is nervous about having surgery.
--- NOTE | 2020-04-19 12:00 | NUR ---
Dr Diane in to see pt. States he would like pt to remain PCU status at this time. Provider stated pt may have dialudid instead of fentanyl.
--- NOTE | 2020-04-19 18:30 | NUR ---
SUMMARY Pt departed to OR around 1400 and has not yet returned to unit. Prior to departure, pt was in good spirits, stating that the dilaudid effectively relieved his pain. Pt departed on room air. SR per monitor. BP stable. Pt's spouse was visiting but departed when pt left the unit.
--- NOTE | 2020-04-19 21:00 | NUR ---
RECEIVING NOTE RECEIVED HAND OFF FROM Sofia OCONENLL RN USING SBAR. TRANSPORTED TO ICU 10 VIA BED. LYING IN SUPINE WITH EYES CLOSED, ELEVATED TO SEMI FOWLERS FOR COMFORT. OPENS EYES TO VERBAL STIMULI, EASILY REORIENTABLE WHEN CONFUSED. SPOUSE AT BEDSIDE HELPS WITH KEEPING ORIENTED. RESPIRATIONS EVEN, SHALLOW, AND UNLABORED ON O2 AT 2L/NC, BBS CTA. ABDOMEN SOFT AND NONDISTENDED. HYPOACTIVE BOWEL SOUNDS NOTED IN ALL QUADS. RIGHT HAND SL PIV IS PATEMT, FLUSHING WITH EASE. RIGHT WRIST PIV IS PATENT, INFUSING POST OP LR WO, WILL CHANGE FLUIDS PER MD ORDERS. C/O PAIN 08/18 TO LLE, WILL MEDICATE PER EMAR. CONTINENT OF BOWEL AND BLADDER USES URINAL. LEFT HIP GUAZE AND [place] DRESSING IS C/D/I. NO SHADOWING NOTED. DENIES N/T TO BLE, GOOS DISTAL PULSES AND CAP REFILL NOTED. SCD'S TO BLE WORKING APPROPRIATELY. DENIES FURTHER NEEDS OR WANTS AT THIS TIME. SAFETY MEASURES IN PLACE. WILL CONTINUE TO MONITOR.
--- NOTE | 2020-04-20 00:10 | NUR ---
VSS PLACED BP CUFF TO RIGHT ANKLE AFTER REPOSITIONING ON RIGHT ARM UNSUCCESSFULLY SEVERAL TIMES. TOLERATED WELL. SAFETY MEASURES IN PLACE. WILL CONTINUE TO MONITOR.
--- NOTE | 2020-04-20 01:50 | NUR ---
URINE AAO X4, GUERRA, FOLLOWS ALL COMMANDS. SITTING UP IN HIGH FOWLERS WITH EYES OPEN. ASKED FOR HELP FINDING HIS CELL PHONE. FOUND IN THE BED NEXT TO HIM ON THE LEFT SIDE. USED THE URINAL, 300 NOTED OUTPUT OF CONCENTRATED SURESH URINE. RATES PAIN AT 3/10, INSTRUCTED TO CALL IF PAIN INCREASES, VOICES UNDERSTANDING. DENIES FURTHER NEEDS OR WANTS AT THIS TIME. SAFETY MEASURES IN PLACE. WILL CONTINUE TO MONITOR.
--- NOTE | 2020-04-20 05:25 | NUR ---
SHIFT SUMMARY LYING IN SEMI FOWLERS WITH EYES CLOSED. HAS RESTED WELL SINCE RETURN FROM PACU. PAIN WELL MANAGED WITH DILAUDID 1MG IVP PER MD ORDERS. LR INFUSING TO RIGHT WRIST PIV. NO FURTHER CHANGES NOTED AT THIS TIME. SAFETY MEASURES IN PLACE. WILL CONTINUE TO MONITOR AND GIVE HAND OFF TO ONCOMING SHIFT USING SBAR.
--- NOTE | 2020-04-20 07:35 | NUR ---
ASSUMED CARE: REPORT RECEIVED FROM ALYSSA Almanza RN. ASSUMED CARE OF THIS PT AT APPROX 0700. ON ASSESSMENT, THE PT IS AWAKE, ALERT & ORIENTED. HE STS HAVING MILD PAIN OF LLE THAT IS SLOWLY INCREASING SINCE LAST PAIN MANAGER NUCLEAR. PT ON RA W/ O2 SATS > 92%, BRIEF DESATS TO 89% NOTED WHEN PT SLEEPING SOUNDLY. MONITOR SHOWS SR W/ HR 80s, BP STABLE. PT HAS NO GI COMPLAINTS, IS TOLERATING PO INTAKE WELL. VOIDS W/O DIFFICULTY USING URINAL AT BEDSIDE. SKIN OVERALL CDI; SURGICAL SITE TO L HIP W/ MODERATE AMOUNT OF DRESSING SATURATION NOTED, DRAINAGE IS SANGUINOUS. WILL CONTINUE TO MONITOR & UPDATE NEEDED.
--- NOTE | 2020-04-20 08:15 | NUR ---
DR NAVARRO: CALL TO PROVIDER TO DISCUSS PT's SURGICAL SITE. ON FUTHER ASSESSMENT BY THIS RN, IT IS NOTED THAT THE PT IS HAVING COPIOUS AMNTS OF SS DRAINAGE FROM THE SITE. UNDERSIDE OF DRESSING IS TOTALLY SATURATED & THERE IS ALSO A LARGE AMNT OF DRAINAGE NOTED ON THE BEDDING WELL. PROVIDER STS THAT HE IS IN THE OR ALL DAY & PLANS TO ROUND ON THIS PT IN THE AFTERNOON. THIS RN REQUESTS ROUTINE BLOOD WORK, ORDERS PLACED. ALSO ASKED IF DRESSING MAY BE CHANGED IT IS SATURATED, HE STS IT IS OKAY FOR THIS RN TO CHANGE DRESSING.
[2020-04-20 09:09] LABS: BASOPHILS ABSOLUTE AUTO 0.01 K/mm3 (0.00-0.23); BASOPHILS PERCENT AUTO 0 % (0-2); EOSINOPHILS PERCENT AUTO 0 % (0-6); Hematocrit 23.2 % (37.0-53.0); Hemoglobin 7.8 g/dL (13.5-17.5); IMMATURE GRAN PERCENT AUTO 1 % (0-1); LYMPHOCYTES ABSOLUTE AUTO 0.57 K/mm3 (0.84-5.20); LYMPHOCYTES PERCENT AUTO 4 % (21-46); MONOCYTES ABSOLUTE AUTO 1.08 K/mm3 (0.16-1.47); MONOCYTES PERCENT AUTO 8 % (4-13); Mean Corpuscular HGB 32.5 pg (26.0-34.0); Mean Corpuscular HGB Conc 33.6 g/dL (31.5-36.5); Mean Corpuscular Volume 97 fL (80-100); Mean Platelet Volume 9.3 fL (9.1-12.4); NEUTROPHILS ABSOLUTE AUTO 12.22 K/mm3 (1.96-9.15); NEUTROPHILS PERCENT AUTO 87 % (41-73); Platelet Count 216 K/mm3 (150-400); RDW Coefficient Variation 13.6 % (11.7-14.2); RDW Standard Deviation 48.5 fL (35.1-46.3); White Blood Cell Count 13.98 K/mm3 (4.00-11.30)
[2020-04-20 09:20] LABS: Creatinine, Blood 1.93 mg/dL (0.60-1.20); Potassium, Blood 4.5 mmol/L (3.5-5.5)
--- NOTE | 2020-04-20 09:45 | NUR ---
DRESSING CHANGED: DRESSING TO L HIP HAS BEEN COMPLETELY CHANGED & REINFORCED W/ PRESSURE DRESSING TAPE PER SURGEON REQUEST.
--- NOTE | 2020-04-20 10:35 | NUR ---
04/20/20 1035 Pat Avila VERIFICATIONS: EDIT CHART.
--- NOTE | 2020-04-20 11:35 | NUR ---
DR AVELAR: PROVIDER AT BEDSIDE TO EVAL PT. DISCUSSED W/ HIM PT's SIGNIFICANT DROP IN H&H POST-OP, 1 UNIT PRBCs HAS BEEN ORDERED TO TRANSFUSE. HE WOULD ALSO LIKE THE PT's KEPPRA DOSING TO BE MADE PO. IVF RATE INCREASED R/T WORSENING RENAL FUNCTION. PO PAIN MEDS ORDERED FOR BETTER PAIN CONTROL. TOMORROW AM LABS ORDERED & PT HAS BEEN MADE SURGICAL W/O TELE STATUS.
--- NOTE | 2020-04-20 15:55 | NUR ---
DONA ABURTO: PROVIDER AT BEDSIDE TO EVAL PT. HE HAS EVALUATED THE PT's SURGICAL SITE & FEELS THAT THE PRESSURE DRESSING IS ADEQUATE & CAN REMAIN IN PLACE, W/ REINFORCEMENT PRN, UNTIL HE OR DR NAVARRO SEE THE PT TOMORROW. INCREASED WBC COUNT ON F/U LABS HAS BEEN DISCUSSED. HE FEELS THAT THIS IS LIKELY R/T THE SURGERY ITSELF, BUT IS AGREEABLE TO ORDERING 2 DOSES OF ANCEF R/T PT's HX OF POST-OP INFECTION AFTER KNEE REPLACEMENT. NO OTHER CHANGES AT THIS TIME.
--- NOTE | 2020-04-20 18:38 | NUR ---
SHIFT SUMMARY: NO ACUTE CHANGES SINCE PRIOR UPDATES. PT REMAINS A&O, PLEASANT & COOPERATIVE. HE HAS CONTINUED TO DENY PAIN THIS AFTERNOON W/ MEDS PER EMAR. PT ON RA W/ O2 SATS > 92%. MONITOR SHOWS SR W/ HR 80s, HTN INCREASING THIS EVENING W/ SCHEDULED MEDS PER EMAR. PT TOLERATING PO INTAKE WELL & HAS NO GI COMPLAINTS. VOIDS W/O DIFFICULTY USING URINAL. URINE OUTPUT IS POOR THIS SHIFT & URINE IS DARK IN COLOR, PT ACKNOWLEDGES NEED TO DRINK MORE FLUIDS. IVF ALREADY INCREASED MENTIONED IN PRIOR NOTE. SURGICAL SITE REMAINS UNCHANGED. SMALL AMOUNT SANGUINOUS DRAINAGE NOTED UNDER DRESSING WHICH IS OKAY PER PROVIDER JORDAN. SKIN OTHERWISE CDI. WILL CONTINUE TO MONITOR & REPORT OFF TO ONCOMING RN.
--- NOTE | 2020-04-20 19:30 | NUR ---
ASSUMED PT CARE. PT AWAKE AND ALERT. NO S/S OD SZ ACTIVITY. NO W/D SYMPTOMS. PT SATTES PAIN UNDER CONTROL AT THIS TIME. LEFT HIP SURGICAL DRESSING INTACT WITH MINIMAL RED DRAINAIGE NOTED TO LOWER PART OF DRESSING. PULSES INTACT.
--- NOTE | 2020-04-20 20:49 | NUR ---
REPORT TO [facility]. ALL QUESTIONS ANSWERED. PT BELONGINGS WITH PT. PT. MEDICATED FOR PAIN.
--- NOTE | 2020-04-20 21:21 | NUR ---
PT ARRIVED TO ROOM 216 TX FROM ICU 15. REPORT REC FROM MARGA Montana RN. PT A/O, VSS; SATS >90% ON RA, LUNGS CLEAR. PT REP PAIN MIAN AFTER GETTING SETTLED INTO NEW BED. PRESSURE DRESSING TO LEFT INTACT W/SOME SS SHADOWING NOTED TO ABD PAD BENEATH TAPE; OUTER DRESSNIG CDI. SWELLING TO LEFT HIP NOTED. PT DENIES N/T TO BLE, CAP REFILL WNL. PT ORIENTED TO ROOM/CALL LIGHT, PLAN TO MONITOR AND TX PER ORDERS.
[2020-04-21 05:15] LABS: BASOPHILS PERCENT AUTO 0 % (0-2); EOSINOPHILS PERCENT AUTO 0 % (0-6); Hematocrit 20.4 % (37.0-53.0); Hemoglobin 6.9 g/dL (13.5-17.5); IMMATURE GRAN ABSOLUTE AUTO 0.09 K/mm3 (0.00-0.10); IMMATURE GRAN PERCENT AUTO 1 % (0-1); LYMPHOCYTES ABSOLUTE AUTO 0.83 K/mm3 (0.84-5.20); LYMPHOCYTES PERCENT AUTO 8 % (21-46); MONOCYTES ABSOLUTE AUTO 0.94 K/mm3 (0.16-1.47); MONOCYTES PERCENT AUTO 9 % (4-13); Mean Corpuscular HGB 32.2 pg (26.0-34.0); Mean Corpuscular HGB Conc 33.8 g/dL (31.5-36.5); Mean Corpuscular Volume 95 fL (80-100); Mean Platelet Volume 9.4 fL (9.1-12.4); NEUTROPHILS ABSOLUTE AUTO 8.54 K/mm3 (1.96-9.15); NEUTROPHILS PERCENT AUTO 82 % (41-73); Platelet Count 195 K/mm3 (150-400); RDW Coefficient Variation 13.8 % (11.7-14.2); RDW Standard Deviation 48.5 fL (35.1-46.3); Red Blood Cell Count 2.14 M/mm3 (4.30-5.90)
--- NOTE | 2020-04-21 05:44 | NUR ---
SHIFT SUMMARY PT A0X4. NO ACUTE CHANGES SINCE TRANSFERED FROM ICU. PT DENIES PAIN AT REST AT THIS TIME. PRESSURE DRESSING STILL IN PLACE, INTACT WITH SEROSANG DRAINAGE ON ABD PAD UNDERNEATH. PT DENIES N/T AND DIZZINESS. PAIN MANAGED WITH PO MEDS, SEE EMR. HGB IS 6.9, WILL ADRESS TO DAY SHIFT NURSE. PT IS ASYMPTOMATIC. VSS. AFEBRILE. PT TOLERATING PO INTAKE DENIES NAUSEA AND VOMITING. HE REPORTS PASSING GAS. 2 IV ON R SIDE HAND/WRIST. PT TO SEE THERAPIST TODAY. ABX GIVEN AND FLUID ADMNISTERED. UA OUTPUT OF 350ML.
[2020-04-21 05:49] LABS: Albumin, Blood 2.4 g/dL (3.4-5.0); Albumin/Globulin Ratio 0.8 (0.8-1.8); Bilirubin, Total 0.4 mg/dL (0.1-1.0); Bun/Creatinine Ratio 17.2 (12.0-20.0); Creatinine, Blood 1.86 mg/dL (0.60-1.20); Potassium, Blood 4.6 mmol/L (3.5-5.5); Total Protein, Blood 5.4 g/dL (6.4-8.2)
--- NOTE | 2020-04-21 11:29 | NUR ---
DR AVELAR HERE TO SEE PT, REPORTS TO S.L. PT. REPORTS WILL ORDER 2 UNITS OF BLOOD TO BE GIVEN. FAMILY HERE, DISCUSSED BP MEDS WITH
--- NOTE | 2020-04-21 14:13 | NUR ---
PT RECENTLY HAD FIRST UNIT OF BLOOD STARTED, FAMILY IN ROOM. DISCUSSED S/SX OF REACTION.
--- NOTE | 2020-04-21 16:29 | NUR ---
SHIFT SUMMARY PT EATING AND DRINKING, VOIDING, PASSING GAS. PT UP TO SIDE OF BED WITH THERAPY. PT REPORTED TO BE LITTLE LIGHTHEADED THIS AM WITH THERAPY, WAS BETTER THIS AFTERNOON WITH THERAPY (DIZZINESS). PT RECIEVING FIRST OF 2 UNITS AT THIS TIME. PT BEEN ASSISTED WITH ADL'S PRN. PT BEEN MED PRN PAIN. DR BEEN TO SEE PT. PT USING CALL LIGHT APPR. FAMILY IN ROOM MOST OF DAY.
--- NOTE | 2020-04-21 17:24 | NUR ---
FIRST UNIT OF PRBC'S COMPLETED. PT TOLERATED WELL. PT LS CLEAR. PT VOIDING.
[2020-04-22 05:06] LABS: BASOPHILS ABSOLUTE AUTO 0.01 K/mm3 (0.00-0.23); BASOPHILS PERCENT AUTO 0 % (0-2); EOSINOPHILS PERCENT AUTO 3 % (0-6); Hematocrit 24.2 % (37.0-53.0); Hemoglobin 8.1 g/dL (13.5-17.5); IMMATURE GRAN ABSOLUTE AUTO 0.14 K/mm3 (0.00-0.10); IMMATURE GRAN PERCENT AUTO 2 % (0-1); LYMPHOCYTES ABSOLUTE AUTO 1.22 K/mm3 (0.84-5.20); LYMPHOCYTES PERCENT AUTO 16 % (21-46); MONOCYTES ABSOLUTE AUTO 0.79 K/mm3 (0.16-1.47); MONOCYTES PERCENT AUTO 10 % (4-13); Mean Corpuscular HGB 30.8 pg (26.0-34.0); Mean Corpuscular HGB Conc 33.5 g/dL (31.5-36.5); Mean Corpuscular Volume 92 fL (80-100); Mean Platelet Volume 9.1 fL (9.1-12.4); NEUTROPHILS ABSOLUTE AUTO 5.43 K/mm3 (1.96-9.15); NEUTROPHILS PERCENT AUTO 70 % (41-73); NRBC ABSOLUTE 0.02 K/mm3 (0.00-0.02); NRBC Auto 0.3 /100 WBC (0.0-0.2); Platelet Count 217 K/mm3 (150-400); RDW Coefficient Variation 15.3 % (11.7-14.2); RDW Standard Deviation 51.7 fL (35.1-46.3); Red Blood Cell Count 2.63 M/mm3 (4.30-5.90); White Blood Cell Count 7.79 K/mm3 (4.00-11.30)
[2020-04-22 05:23] LABS: Albumin, Blood 2.5 g/dL (3.4-5.0); Albumin/Globulin Ratio 0.7 (0.8-1.8); Bun/Creatinine Ratio 20.4 (12.0-20.0); Calcium, Blood 8.2 mg/dL (8.5-10.1); Creatinine, Blood 1.47 mg/dL (0.60-1.20); Globulin, Blood 3.5 g/dL (2.2-4.0); Potassium, Blood 4.3 mmol/L (3.5-5.5)
--- NOTE | 2020-04-22 06:23 | NUR ---
SHIFT SUMMARY POD 3 RIGHT HIP NAILING. DRESSING CHANGED THIS SHIFT R/T SS SATURATION. NEW AQUACEL PLACED AND IS CDI. PT A/OX4. SECOND UNIT OF BLOOD COMPLETED AT START OF SHIFT, NO COMPLICATIONS NOTED. DENIES FEELING LIGHTHEADED OR SOB. PAIN MANAGED WITH 10MG OXYCODONE X1, REPORTS PAIN ONLY WITH MOVING. PLAN TO WORK WITH THERAPY TODAY. USING URINAL AND CALL LIGHT APPROPRIATELY. MIAN PO INTAKE, DENIES N/V. IS CURRENTLY RESTING IN BED WITH EYES CLOSED AND CALL LIGHT IN REACH. WILL CONT TO MONITOR AND GIVE REPORT TO ONCOMING RN.
--- NOTE | 2020-04-22 12:40 | NUR ---
DR AVELAR BEEN TO SEE PT RECENTLY, FAMILY WAS PRESENT. SEE ORDERS.
--- NOTE | 2020-04-22 16:39 | NUR ---
SHIFT SUMMARY PT EATING AND DRINKING, VOIDING, PASSING GAS. BOWEL CARE ENCOURAGED. PT WORKED WITH THERAPY EARLIER TODAY. PT DENIES DIZZINESS TODAY. PT REPOSITIONING SELF IN BED. PT HAS PAS IN PLACE. FAMILY IN ROOM MOST OF DAY. PT BEEN ASSISTED WITH ADL'S PRN.
--- NOTE | 2020-04-23 06:33 | NUR ---
PATIENT HAS BEEN DOING PT EXERCISES IN BED HE HAS BEEN UNABLE TO PERFORM WELL WHEN UP. HE FEELS THAT HE OVER DID IT LAST NIGHT AND IS SUFFERING FOR IT TODAY. PAIN MEDICATIONS HAVE HELPED WITH THE CRAMPING IN HIS LEGS. 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 HE ALSO HAS BEEN ATTEMPING TO HAVE A BM, SITTING ON THE BED REYES SEVERAL TIMES WITH OUT BM. PATIENT IS AMIABLE TO PRUNE JUICE AND COFFEE TO SEE IF THIS WILL HELP WITH BM, NO ACUTE CHANGES, CALL LIGHT IN REACH.
--- NOTE | 2020-04-23 10:07 | NUR ---
POSSIBLE SEIZURE PT WAS WORKING WITH THERAPY AND SAT UP TO THE EDGE OF THE BED. CESAR FROM PHYSICAL THERAPY REPORTED PT WAS ABLE TO STAND X2 AT THE EDGE OF THE BED. CESAR REPORTED THAT PT BECAME UNRESPONSIVE AFTER THE SECOND TIME HE STOOD. PT WAS INCONTINENT OF URINE WHEN UNRESPONSIVE FOR APPROXIMATELY 1 MINUTE PER CESAR. PT ALSO BECAME DIAPHORETIC. PT ALERT AND ORIENTED ONCE AWAKENED. PT WAS ASSISTED BACK TO BED BY 4 STAFF MEMBERS. CALL PLACED TO DR. AVELAR, AWAITING RETURN CALL.
[2020-04-23 10:40] LABS: BASOPHILS ABSOLUTE AUTO 0.02 K/mm3 (0.00-0.23); BASOPHILS PERCENT AUTO 0 % (0-2); EOSINOPHILS ABSOLUTE AUTO 0.31 K/mm3 (0.00-0.68); EOSINOPHILS PERCENT AUTO 4 % (0-6); Hematocrit 25.6 % (37.0-53.0); Hemoglobin 8.3 g/dL (13.5-17.5); IMMATURE GRAN ABSOLUTE AUTO 0.14 K/mm3 (0.00-0.10); IMMATURE GRAN PERCENT AUTO 2 % (0-1); LYMPHOCYTES ABSOLUTE AUTO 0.84 K/mm3 (0.84-5.20); LYMPHOCYTES PERCENT AUTO 12 % (21-46); MONOCYTES ABSOLUTE AUTO 0.63 K/mm3 (0.16-1.47); MONOCYTES PERCENT AUTO 9 % (4-13); Mean Corpuscular HGB 30.5 pg (26.0-34.0); Mean Corpuscular HGB Conc 32.4 g/dL (31.5-36.5); Mean Corpuscular Volume 94 fL (80-100); Mean Platelet Volume 8.8 fL (9.1-12.4); NEUTROPHILS ABSOLUTE AUTO 5.31 K/mm3 (1.96-9.15); NEUTROPHILS PERCENT AUTO 73 % (41-73); Platelet Count 266 K/mm3 (150-400); RDW Coefficient Variation 14.9 % (11.7-14.2); RDW Standard Deviation 51.7 fL (35.1-46.3); Red Blood Cell Count 2.72 M/mm3 (4.30-5.90); White Blood Cell Count 7.25 K/mm3 (4.00-11.30)
[2020-04-23 11:04] LABS: Calcium, Blood 8.7 mg/dL (8.5-10.1); Creatinine, Blood 1.35 mg/dL (0.60-1.20); Potassium, Blood 4.2 mmol/L (3.5-5.5)
--- NOTE | 2020-04-23 15:33 | NUR ---
THIS RN RECIEVED REPORT AND IS ASSUMING CARE OF PT AT THIS TIME.
--- NOTE | 2020-04-23 15:36 | NUR ---
PT RESTING QUIETLY, RESP E/U. FAMILY PRESENT.
--- NOTE | 2020-04-23 18:03 | NUR ---
DR AVELAR NOTIFIED OF PT'S ORTHOSTATIC VS AND THAT PT REMAINED ALERT. DR STATED TO NOT START IVF. DR INFORMED OF PT HAVING BM'S THE DR ASKED IF PT HAD BM. SEE ORDERS.
--- NOTE | 2020-04-23 19:23 | NUR ---
REPORT GIVEN TO AMANUEL RN.
--- NOTE | 2020-04-24 04:06 | NUR ---
SHIFT SUMMARY: PT POD#4 FOR L HIP NAILING. 50% WB TO LLE. GAUZE, ABD PAD AND COMPRESSION TAPE IN PLACE. C/D/I WITHOUT DRG NOTED. PT C/O HEARTBURN LAST NIGHT CAUSING SMALL AMOUNT OF GREEN EMESIS. NEW ORDER FOR SL ZOFRAN, TUMS AND GI COCKTAIL. PT HAD ONE LIQ BM. RATING LLE PAIN 2/10 ON PAIN SCALE. ABLE TO TURN IN BED WITH MINIMAL ASSIST. NEW ORDER FOR LOVENOX WHICH WAS STARTED AT APPROX 2AM. VOIDING IN URINAL. URINE SURESH COLORED. PT ENC TO INCREASE FLUID INTAKE.
[2020-04-24 06:12] LABS: BASOPHILS ABSOLUTE AUTO 0.02 K/mm3 (0.00-0.23); BASOPHILS PERCENT AUTO 0 % (0-2); EOSINOPHILS ABSOLUTE AUTO 0.09 K/mm3 (0.00-0.68); EOSINOPHILS PERCENT AUTO 1 % (0-6); Hematocrit 25.2 % (37.0-53.0); Hemoglobin 8.3 g/dL (13.5-17.5); IMMATURE GRAN ABSOLUTE AUTO 0.06 K/mm3 (0.00-0.10); IMMATURE GRAN PERCENT AUTO 1 % (0-1); LYMPHOCYTES ABSOLUTE AUTO 0.47 K/mm3 (0.84-5.20); LYMPHOCYTES PERCENT AUTO 5 % (21-46); MONOCYTES ABSOLUTE AUTO 0.67 K/mm3 (0.16-1.47); MONOCYTES PERCENT AUTO 7 % (4-13); Mean Corpuscular HGB 31.6 pg (26.0-34.0); Mean Corpuscular HGB Conc 32.9 g/dL (31.5-36.5); Mean Corpuscular Volume 96 fL (80-100); Mean Platelet Volume 8.9 fL (9.1-12.4); NEUTROPHILS ABSOLUTE AUTO 8.08 K/mm3 (1.96-9.15); NEUTROPHILS PERCENT AUTO 86 % (41-73); Platelet Count 254 K/mm3 (150-400); RDW Coefficient Variation 14.5 % (11.7-14.2); RDW Standard Deviation 50.5 fL (35.1-46.3); Red Blood Cell Count 2.63 M/mm3 (4.30-5.90); White Blood Cell Count 9.39 K/mm3 (4.00-11.30)
[2020-04-24 06:31] LABS: Alanine Aminotransfer (ALT/SGP 66 U/L (12-78); Albumin, Blood 2.5 g/dL (3.4-5.0); Albumin/Globulin Ratio 0.7 (0.8-1.8); Alk Phos 248 U/L (50-136); Anion Gap 8 mmol/L (6-16); Aspartate Aminotrans (AST/SGOT 71 U/L (12-37); Bilirubin, Total 1.9 mg/dL (0.1-1.0); Blood Urea Nitrogen 23 mg/dL (8-24); Bun/Creatinine Ratio 19.2 (12.0-20.0); CO2, Blood 24 mmol/L (21-32); Calcium, Blood 8.5 mg/dL (8.5-10.1); Chloride, Blood 97 mmol/L (98-108); Globulin, Blood 3.5 g/dL (2.2-4.0); Glomerular Filtration Rate >60 (60-); Glucose, Blood 128 mg/dL (70-99); Potassium, Blood 3.9 mmol/L (3.5-5.5); Sodium, Blood 129 mmol/L (136-145)
[2020-04-24 06:32] LABS: International Normalized Ratio 1.02; Prothrombin Time Results 10.9 Sec (9.7-11.5)
--- NOTE | 2020-04-24 14:22 | NUR ---
ORTHOSTATIC LOW BP VS. SEIZURE ACTIVITY PT WAS WORKING WITH THERAPY THIS MORNING. PER PRASHANT WITH PT PT WAS ABLE TO STAND X2. HE THEN BECAME UNRESPONSIVE HIS EYES ROLLED BACK AND HE ARCHED BACKWARD. PRASHANT REPORTED HE USED A STERNAL RUB TO ATTEMPT TO AWAKEN THE PT. PT WAS ABLE TO AWAKEN AND WAS ALERT AND ORIENTED. SHORTLY AFTER, PT BECAME VERY DROWSY. PT'S BP WAS 83/49 WHILE HE WAS SITTING AT THE EDGE OF THE BED. AFTER BEING ASSISTED BACK TO BED HIS BLOOD PRESSURE WAS 95/[address] AVELAR NOTIFIED. TELE, EKG, AND NS BOLUS ORDERED. BP IMPROVED WITH BOLUS. VSS. WILL CONTINUE TO MONITOR.
--- NOTE | 2020-04-24 18:53 | NUR ---
ORTHOSTATIC VS ATTEMPTED TO OBTAIN ORTHOSTATIC VS THIS EVENING. PT WAS ABLE TO SIT AT THE EDGE OF THE BED. HIS BLOOD PRESSURE AT THAT TIME WAS 112/69 AND HR 92 WHILE SITTING. THE BED WAS RAISED UP SINCE THE PT IS TALL AND IT IS EASIER FOR HIM TO STAND FROM A HIGHER POSITION. PT ATTEMPTED TO STAND BUT REPORTED STANDING WAS TO PAINFUL. SINCE ATTEMPTED TO STAND BP WAS CHECKED AND FOUND TO BE 101/59 AND HR OF 95. PT REMAINED ALERT AND ORIENTED WHILE SITTING AND ATTEMPTING TO STAND. PT REPORTS THAT HE FEELS HIS EPISODES OF UNRESPONSIVENESS ARE R/T PAIN. PT RATES HIS PAIN AT 2/10 AT REST AND PAIN INCREASES ONLY WITH MOVEMENT. PT WAS ABLE TO STAND WITH THERAPY THIS MORNING DESPITE NOT HAVING NARCOTIC PAIN MEDICATION. MINIMIZING NARCOTIC PAIN MEDICATION TO PREVENT DROWSINES AND DROP IN BP.
--- NOTE | 2020-04-24 19:53 | NUR ---
SHIFT SUMMARY PT IS POD#5 FROM L HIP PINNING. PT BECAME UNRESPONSIVE WITH THERAPY TODAY, AFTER RECOVERING HE WAS VERY DROWSY AND SLEPT FOR MOST OF THE DAY. PT HAS HAD MULTIPLE LIQUID BOWEL MOVEMENTS, PT REPORTS THIS IS HIS BASELINE; DR. AVELAR NOTIFIED AND ORDERED PROBIOTIC. PAIN IS MANAGED WHILE PT IS AT REST BUT HE REPORTS INCREASE IN PAIN WITH ACTIVITY. ATTEMPTING TO MINIMIZE NARCOTICS. VSS. REPORT GIVEN TO WARREN MURDOCK.
--- NOTE | 2020-04-25 01:12 | NUR ---
DRESSING CHANGED DRESSING CHANGED ON L HIP, DRESSING WAS SATURATED WITH SEROSANG DRAINAGE. INCISION CLEANED AND DRIED. APPLIED ABD PAD W/ FOAM TAPE. PT ALSO PRESENT 2+ EDEMA ON L HIP. LINEN CHANGED.
--- NOTE | 2020-04-25 05:13 | NUR ---
SHIFT SUMMARY POD6 FROM L HIP OPEN REDUC W/ NAIL/PINNING. AOX4. NONDROWSY. VSS. PT DENIES PAIN. REFUSED PAIN MEDS. PT WOUND DRESSING WAS SATURATED WITH SEROSANG DRAINAGE, KRISTOPHER AND INCISION ARE INTACT. DRESSING CHANGED WITH ABD PAD AND FOAM TAPE. WOUND CLEANED. ENC TURN Q2 TO RELIEF PAIN/PRESSURE. PT REMAIN VSS DURING SHIFT. PT DENIES DIZZINESS. PT TOLERATING PO INTAKE DENIES N/V. REPORTS PASSING FLATUS. HE HAD A BM YESTERDAY. PT SLEPT GOOD DURING SHIFT.
--- NOTE | 2020-04-25 16:10 | NUR ---
Shift summary No syncopal episodes noted this shift. VSS. Patient had one loose stool this shift. Patient refused suppository. Patient stood at the side of the bed with RN and MD today. Pain controlled with 2.5mg Oxycodone per patient request. Dressing CDI. Call light within patient reach.
--- NOTE | 2020-04-26 05:35 | NUR ---
SHIFT SUMMARY L INTERTROCHANTERIC RX ORIF POD7, A/O X4, VSS, PAIN WELL CONTROLLED PER EMAR, TOLERATING PO, PASSING FLATUS, REPOSITIONS SELF W/ TRAPEZE ABOUT BED, DRESSING C/D/I T/O SHIFT. CALL LIGHT IN REACH, WILL CONTINUE TO MONITOR AND REPORT TO ONCOMING DAY RN.
--- NOTE | 2020-04-26 18:26 | NUR ---
SHIFT SUMMARY PT A&OX4, VSS, POD7 ORIF, AQUACEL CHANGED TODAY. PAIN MANAGED WITH 2.5 MG OXY, MIAN PO, DENIES N&V. STAND/PIVOT, 50% WB LLE, TO CHAIR/BED, UP TO CHAIR T/O SHIFT. REPOSITIONS SELF WELL IN BED WITH TRAPEZE. PLAN FOR DC TO SNF TOMORROW. WILL REPORT TO ONCOMING WARREN MURDOCK.
--- NOTE | 2020-04-27 05:53 | NUR ---
SHIFT SUMMARY L HIP FX REPAIR POD8, A/O X4, VSS, TOLERATING PO, VOIDING WELL, MULTIPLE BM PER REPORT, PAIN WELL CONTROLLED PER EMAR, DRESSING SATURATED AT BEGINNING OF SHIFT, NEW AQUACELL APPLIED. CALL LIGHT IN REACH, WILL CONTINUE TO MONITOR AND REPORT TO ONCOMING DAY RN.
[2020-04-27 12:48] LABS: Influenza A, PCR Negative (NEGATIVE); Influenza B, PCR Negative (NEGATIVE); Resp Syncytial Virus, PCR Negative (NEGATIVE); SARS-Cov-2 (COVID-19) PCR, MMC Negative (NEGATIVE)
--- NOTE | 2020-04-27 15:03 | NUR ---
DISCHARGE SUMMARY PT A&OX4, VSS, LEFT VIA WC WITH TRANSPORT TO GO TO [facility], WITH ENVELOPE WITH [facility]. REPORT CALLED TO SURESH. CAYETANO VERMA.
== END 2020-04-27 14:41 | disposition home or self-care (01) | DRG 481 ==
LOC: ER 02:33 → SURS 05:03 → ICUW 05:03 → SURS 05:59 → ICUW 09:15 → SURS 04-20 21:14
PROVIDERS: Internal Medicine; Orthopaedic Surgery; Student in an Organized Health Care Education/Training Program; ADMIT Internal Medicine
PROC: 0QS706Z Reposition Left Upper Femur with Intramedullary Internal Fixation Device, Open Approach (ICD-10-PCS; principal; 2020-04-19 14:30)
PROC: 30233N1 Transfusion of Nonautologous Red Blood Cells into Peripheral Vein, Percutaneous Approach (ICD-10-PCS; 2020-04-20)
DX: S72.142A Displaced intertrochanteric fracture of left femur, initial encounter for closed fracture (principal); D62 Acute posthemorrhagic anemia; E87.1 Hypo-osmolality and hyponatremia; W19.XXXA Unspecified fall, initial encounter; J44.9 Chronic obstructive pulmonary disease, unspecified; G47.33 Obstructive sleep apnea (adult) (pediatric); Z20.828 Contact with and (suspected) exposure to other viral communicable diseases; I12.9 Hypertensive chronic kidney disease with stage 1 through stage 4 chronic kidney disease, or unspecified chronic kidney disease; N18.9 Chronic kidney disease, unspecified; K21.9 Gastro-esophageal reflux disease without esophagitis; I95.1 Orthostatic hypotension; G89.29 Other chronic pain; E66.9 Obesity, unspecified; F10.20 Alcohol dependence, uncomplicated; Z68.38 Body mass index [BMI] 38.0-38.9, adult; Z88.5 Allergy status to narcotic agent; Z88.2 Allergy status to sulfonamides; Z91.018 Allergy to other foods; Z87.891 Personal history of nicotine dependence
CPT/HCPCS: 0241U; 36415; 36430; 70450; 73502; 80048; 80053; 82140; 85025; 85610; 85730; 86850; 86900; 86901; 86923; 93005; 93010; 96374-59; 97110; 97162; 97166; 97530; 99284-25; A9270; A9270-GY; C1713; G0480; J0690; J1100; J1170; J1650; J1953; J2250; J2270; J2405; J2704; J3010; J3411; J3475; J7030; J7042; J7050; J7120; P9016; Q0163; U0004

== ENCOUNTER → 2020-08-16 | Outpatient (CLI) | payer MEDICARE ==
[~2020-08-16] MED LIST changes: +CARV25 PO; +CITA20 PO; +Cefadroxil500 MG PO; +Doxycycline Mo100 M1; +FERSU300; +FURO20 PO; +LEVE500 PO; +PANT20 PO
== END | disposition home or self-care (01) ==
LOC: LAB SHORT 13:58 → LAB 13:58
DX: S81.802A Unspecified open wound, left lower leg, initial encounter (principal)
CPT/HCPCS: 87070; 87205

== ENCOUNTER 2020-08-20 17:52 | Emergency (ER) | payer MEDICARE ==
[~2020-08-20] VITALS: Ht 188 cm; Wt 111.6 kg
[~2020-08-20 17:52] MED LIST changes: -CITA20 PO; -Doxycycline Mo100 M1; -FERSU300; -FURO20 PO; -LEVE500 PO; -PANT20 PO
[2020-08-20] MEDS ORDERED: AMLO5 PO (19:24)
[2020-08-20] MEDS ORDERED: FERSU300 (19:24)
[2020-08-20] MEDS ORDERED: FURO20 PO (19:25)
[2020-08-20] MEDS ORDERED: PANT20 PO (19:26)
[2020-08-20] MEDS ORDERED: CITA20 PO (19:27)
[2020-08-20] MEDS ORDERED: Doxycycline Mo100 M1 (19:28)
[2020-08-20] MEDS ORDERED: LEVE500 PO (20:47)
== END 2020-08-20 22:47 | disposition short-term general hospital (02) ==
LOC: ER 17:52
DX: M97.02XA Periprosthetic fracture around internal prosthetic left hip joint, initial encounter (principal); I10 Essential (primary) hypertension; Z91.018 Allergy to other foods; Z88.5 Allergy status to narcotic agent; Z88.2 Allergy status to sulfonamides; Z79.899 Other long term (current) drug therapy
CPT/HCPCS: 73502; 99284-25; A9270

== ENCOUNTER → 2020-10-19 | Outpatient (CLI) | payer MEDICARE ==
[~2020-10-19] MED LIST changes: +CITA20 PO; +Doxycycline Mo100 M1; +FERSU300; +FURO20 PO; +LEVE500 PO; +PANT20 PO
[2020-10-20 14:18] LABS: Stool Occult Bld Immuno 1 Negative (NEGATIVE)
== END ==
LOC: LAB SHORT 16:05 → LAB 16:05
PROVIDERS: Nurse Practitioner Family
DX: D64.9 Anemia, unspecified (principal)
CPT/HCPCS: 82274